=== PATIENT | female | born 1940 | race Caucasian/White ===

== ENCOUNTER 2020-01-10 13:20 | Inpatient (IN) | payer MEDICARE ==
[2020-01-10] MEDS ORDERED: HYDROcodone/Acetaminophen 5/325 mg Tablet PO PRN (14:45)
[2020-01-10] MEDS ORDERED: tiZANidine HCl 4 MG TAB PO PRN (14:48)
[2020-01-10] MEDS ORDERED: Gabapentin 300 MG CAP PO SCH (15:00)
[2020-01-10] MEDS ORDERED: IVABRADINE 5 MG PO SCH (21:00)
[2020-01-10] MEDS ORDERED: Pravastatin Sodium 20 MG TAB PO SCH (21:00)
[2020-01-10] MEDS ORDERED: Midodrine HCl 5 MG TAB PO SCH (21:00)
[2020-01-10] MEDS ORDERED: Metoprolol Tartrate 25 MG TAB PO SCH (21:00)
[2020-01-10] MEDS: Gabapentin 300 MG CAP PO SCH (23:15)
[2020-01-10] MEDS: Metoprolol Tartrate 25 MG TAB PO SCH (23:16)
[2020-01-10] MEDS: Simvastatin 10 MG TAB PO SCH (23:17)
[2020-01-10] MEDS: Midodrine HCl 5 MG TAB PO SCH (23:18)
[2020-01-10] MEDS: CORLANOR 5 MG PO SCH (23:22)
--- NOTE | 2020-01-11 01:06 | HP ---
HISTORY OF PRESENT ILLNESS: Ms. Beckman is a well-developed, well-nourished, slightly obese 79-year-old white female, who was standing at home when she somehow fell. She had a resultant laceration to the scalp and a left femoral neck fracture. She was taken to the surgical suite and had open reduction and internal fixation done. Postoperatively, she had some atrial arrhythmias, hypotension, and was moved to telemetry. Eventually, she was stabilized back in sinus rhythm. Dr. Pearson is her inoculator and adjusted her medications and placed her on midodrine also to keep her blood pressure up. PAST MEDICAL HISTORY: Significant for hypertension, hyperlipidemia, peripheral neuropathy, coronary artery disease, congestive heart failure, sinus tachycardia, chronic pain, scalp laceration, open reduction and internal fixation of the left femoral neck, pain, generalized weakness. PAST SURGICAL HISTORY: Cardiac stent, hysterectomy, left total shoulder, carotid endarterectomy, bladder surgery. FAMILY HISTORY: Noncontributory. SOCIAL HISTORY: Reveals the patient smokes 1-1/2 packs a day for the past 60 years, which is a [id number] history of smoking. The patient's alcohol intake is rare, the patient does no drugs. REVIEW OF SYSTEMS: Reveals the patient has a poor appetite and states she has been losing weight and is very tired. She denies fever, chills, or night sweats. She does admit to pain. Denies any skin rashes except for the area over her left methodist, where she has small scalp laceration, and they had two sutures, which were stapled, that have already been removed. The patient denies decrease hearing or vision. The patient does state that she has some shortness of breath and coughing most likely from her smoking. The patient denies any chest pain, dyspnea on exertion, or palpitations at this time. The patient denies nausea, vomiting, indigestion, diarrhea, constipation, or bloody stools. The patient complains of left hip pain and states she actually has not walked in about 2-1/2 years. She does state that she has chronic pain all the time. The patient does have history of anxiety, depressive disorder, is on duloxetine for that and for chronic pain. PHYSICAL EXAMINATION: GENERAL: This is a well-developed, well-nourished, slightly obese white female, in no apparent distress at this time. HEENT: Normocephalic and nontraumatic cranium except for a small laceration in left parietal area, where the skin paul were to approximate that. They are now removed. Nose and throat are somewhat dry. NECK: Supple without masses, nodes, or bruits. CHEST: Clear to auscultation. No rales, no rhonchi, no wheezes are heard. HEART: Reveals a regular rate and rhythm at this time. No murmurs, gallops, or rubs are noted. ABDOMEN: Slightly obese. Soft, nontender without organomegaly. Normal bowel sounds are noted. No rebound or guarding is noted. : Deferred. EXTREMITIES: Reveal no clubbing, cyanosis, or edema. Left hip reveals bandage over the left femoral neck area does not have much drainage or staining. MUSCULOSKELETAL: The patient states she has generalized weakness, but has not walked in 2-1/2 years. She states she was sent here for transferring and standing. NEUROLOGIC: Cranial nerves II through XII are intact. The patient has generalized weakness and pain. The patient is oriented to person, place, and time. ASSESSMENT: 1. Hypertension. 2. Hypotension, most recently with the patient having to be started on midodrine 2.5 mg t.i.d. 3. Hyperlipidemia. 4. Peripheral neuropathy. 5. Sinus tachycardia. 6. Congestive heart failure. 7. Coronary artery disease. 8. Scalp laceration, healing. 9. Left femoral neck fracture, status post ORIF. MEDICATIONS: The patient is on the followin. Xanax 0.5 mg b.i.d. p.r.n. 2. Lovenox 40 mg subcu each day. 3. Metoprolol tartrate 12.5 mg b.i.d. 4. Ramipril 5 mg at bedtime. 5. Pravastatin 10 mg at bedtime. 6. Ivabradine 5 mg b.i.d. 7. Midodrine 2.5 mg t.i.d. 8. Raloxifene 60 mg daily. 9. Tizanidine 4 mg three times a day. 10. Duloxetine 40 mg daily. 11. Gabapentin 300 mg daily. 12. Ferrous sulfate 325 mg daily. 13. Iron with multivitamin each day. 14. Nicotine patch. The patient states she is not going to wear, because her family will take her outside to smoke. PLAN: 1. Continue to monitor the patient's blood pressure closely and adjust medications as needed. 2. Continue to monitor the patient for signs and symptoms of congestive heart failure. 3. Continue to monitor the patient's heart rate for AFib and RVR. 4. Stress ulcer prophylaxis. 5. Decubitus precautions. 6. DVT prophylaxis per Primary Service. 7. Encourage the patient to stop smoking, but her family has chosen to take responsibility to take her outside to smoke if she needed. 8. The patient has been offered a nicotine 21 mg patch like she had at the other hospital, but she refuses it at this time. 9. Physical therapy and occupational therapy. 10. Pain management. Job ID: [id number]
[2020-01-11] MEDS ORDERED: Enoxaparin Sodium 40 MG/0.4 ML SYRINGE SC SCH (05:00)
[2020-01-11] MEDS: HYDROcodone/Acetaminophen 5/325 mg Tablet PO PRN ×3 (05:52→20:51)
[2020-01-11] MEDS ORDERED: Aspirin 81 mg Enteric Coated Tablet PO SCH (09:00)
[2020-01-11] MEDS: Gabapentin 300 MG CAP PO SCH ×3 (09:31→20:50)
[2020-01-11] MEDS: Enoxaparin Sodium 40 MG/0.4 ML SYRINGE SC SCH (09:31)
[2020-01-11] MEDS: Midodrine HCl 5 MG TAB PO SCH ×3 (09:31→20:53)
[2020-01-11] MEDS: Metoprolol Tartrate 25 MG TAB PO SCH ×2 (09:32→20:52)
[2020-01-11] MEDS: CORLANOR 5 MG PO SCH ×2 (09:33→20:54)
[2020-01-11] MEDS: RALOXIFENE 60 MG PO SCH (09:34)
[2020-01-11] MEDS: Aspirin 81 mg Enteric Coated Tablet PO SCH (09:36)
--- NOTE | 2020-01-11 10:30 | PRG ---
DATE OF SERVICE: 01/11/2020 SUBJECTIVE: Ms. Beckman is a very pleasant 79-year-old white female, who was standing at home when she fell. She had a resultant laceration to the scalp and a left femoral neck fracture. She was taken to surgical suite and had open reduction and internal fixation done. Postoperatively, she developed some atrial arrhythmias. The patient was seen by her angle furnaceman and medications were adjusted. This morning, the patient states she is doing well. She states she is ready to go home. I did tell her that she got transferred here for physical therapy to get her strength better. She states she has not walked in 2-1/2 years. She just needs to get stronger, so she can transfer back and forth to her wheelchair and to stand. We will work on that. OBJECTIVE: VITAL SIGNS: Today reveal blood pressure 119/57, pulse 88, respirations 20, O2 saturation 95% on room air, T-max 97.9. GENERAL: This is a well-developed, somewhat obese white female, in no apparent distress at this time. HEENT: Reveals normocephalic and nontraumatic cranium. Pupils equal, round, and reactive. Extraocular movements are intact. Nose and throat are slightly dry, but clear. NECK: Supple without masses, nodes, or bruits. CHEST: Clear to auscultation. No rales, no rhonchi, no wheezes are heard. HEART: Reveals a regular rate and rhythm at this time. No murmurs, gallops, or rubs are noted. ABDOMEN: Obese, soft, nontender without organomegaly. Normal bowel sounds are noted in all 4 quadrants. No rebound or guarding is noted. : Deferred. EXTREMITIES: Reveal no clubbing or cyanosis with trace edema. Left hip bandage still reveals no significant draining or staining. MUSCULOSKELETAL: The patient has generalized weakness. The patient has not been seen by therapy yet, but we will start her with transferring and strengthening exercises. NEUROLOGIC: The patient is oriented to person, place, and time at this time. ASSESSMENT: 1. Hypertension. 2. Hypotension. Most recently, the patient was started on midodrine 2.5 mg t.i.d. 3. Hyperlipidemia. 4. Peripheral neuropathy. 5. Sinus tachycardia. 6. Congestive heart failure. 7. Coronary artery disease. 8. Scalp laceration, healing. 9. Left femoral neck fracture, status post open reduction and internal fixation. 10. Generalized weakness. PLAN: 1. Continue to monitor the patient's blood pressure closely. Adjust medications as needed. 2. Monitor the patient for signs and symptoms of congestive heart failure. 3. Continue to monitor the patient's heart rate for atrial fibrillation and RVR. 4. Stress ulcer prophylaxis. 5. Decubitus precautions. 6. DVT prophylaxis. 7. Encourage the patient to stop smoking. 8. The patient's family has chosen to take the patient outside on their own to smoke if she needs to be. They were taking responsibility to make sure she does not fall. 9. The patient has been offered nicotine 21 mg patches, but she refuses those. 10. Continue physical therapy and occupational therapy. 11. Pain management. Job ID: [id number]
[2020-01-11 11:29] LABS: ALT (SGPT) 12 U/L (8-55); AST (SGOT) 18 U/L (5-34); Albumin 3.1 g/dL (3.4-4.8); Alkaline Phosphatase 64 U/L (40-110); Anion Gap 14 mmol/L (10-20); BUN (Urea Nitrogen) 12 mg/dL (9.8-20.1); Bilirubin, Total 0.4 mg/dL (0.2-1.2); Calc. Creatinine Clearance 84 mL/min (70-130); Calcium 8.9 mg/dL (7.8-10.44); Carbon Dioxide 22 mmol/L (23-31); Chloride 104 mmol/L (98-107); Estimated GFR-MDRD 78; Globulin 3.1 g/dL (2.4-3.5); Glucose 123 mg/dL (83-110); Potassium 4.1 mmol/L (3.5-5.1); Protein, Total 6.2 g/dL (6.0-8.3); Sodium 136 mmol/L (136-145)
[2020-01-11] MEDS: tiZANidine HCl 4 MG TAB PO PRN ×2 (12:03→20:52)
[2020-01-11 12:55] LABS: #Basophils 0.1 thou/uL (0.0-0.2); #Eosinphils 0.3 thou/uL (0.0-0.7); #Lymphocytes 1.8 thou/uL (1.20-3.40); #Monocytes 0.4 thou/uL (0.11-0.59); #Neutrophils 4.2 thou/uL (1.40-6.50); %Basophils 1.1 % (0.0-1.0); %Eosinophils 3.8 % (0.0-10.0); Hemoglobin 9.5 g/dL (12.0-16.0); Mean Corpuscular HGB CONC 32.3 g/dL (32.0-36.0); Mean Corpuscular Hemoglobin 31.4 pg (27.0-31.0); Mean Corpuscular Volume 97.4 fL (78.0-98.0); Mean Platelet Volume 6.3 fL (7.4-10.4); Platelet Count 293 thou/uL (130-400); RBC Distribution Width 13.2 % (11.5-14.5); Red Blood Cell (RBC) Count 3.01 mill/uL (4.20-5.40); White Blood Cell (WBC) Count 6.7 thou/uL (4.8-10.8)
[2020-01-11 20:02] LABS: Bilirubin Negative (Negative); Blood, Urine Negative (Negative); Clarity Clear (Clear); Glucose, Urine (Dipstick) Negative (Negative); Ketone, Urine Negative (Negative); Leukocyte Negative (Negative); Nitrite Negative (Negative); Protein, Urine (Dipstick) Negative (Neg-Trace)
[2020-01-11 20:11] LABS: Bacteria/HPF None Seen HPF (None Seen); RBC/HPF None Seen HPF (0-3); Squamous Epithelial 0-3 HPF (0-3); WBC/HPF None Seen HPF (0-3)
[2020-01-11] MEDS: Simvastatin 10 MG TAB PO SCH (20:50)
[2020-01-12] MEDS: HYDROcodone/Acetaminophen 5/325 mg Tablet PO PRN ×3 (08:25→21:18)
[2020-01-12] MEDS: Midodrine HCl 5 MG TAB PO SCH ×3 (08:27→21:20)
[2020-01-12] MEDS: Enoxaparin Sodium 40 MG/0.4 ML SYRINGE SC SCH (08:27)
[2020-01-12] MEDS: Gabapentin 300 MG CAP PO SCH ×3 (08:27→21:19)
[2020-01-12] MEDS: Metoprolol Tartrate 25 MG TAB PO SCH ×2 (08:29→21:19)
[2020-01-12] MEDS: Aspirin 81 mg Enteric Coated Tablet PO SCH (08:29)
[2020-01-12] MEDS: RALOXIFENE 60 MG PO SCH (08:30)
[2020-01-12] MEDS: CORLANOR 5 MG PO SCH (08:30)
[2020-01-12] MEDS: Ivabradine 5 MG TAB PO SCH (21:19)
[2020-01-12] MEDS: tiZANidine HCl 4 MG TAB PO PRN (21:20)
[2020-01-12] MEDS: Simvastatin 10 MG TAB PO SCH (21:20)
--- NOTE | 2020-01-13 06:15 | PRG ---
DATE OF SERVICE: 01/12/2020 SUBJECTIVE: Ms. Beckman is a 79-year-old, slightly obese white female, who fell at home. She had a resultant laceration of her skull and a resultant left femoral neck fracture. She was taken to surgical suite and had open reduction and internal fixation done. Postoperatively, she developed some atrial arrhythmias. She was seen by Cardiology and medications were adjusted. This morning, the patient states she is doing well and she is ready to go home. I did check with therapy. They state she is not doing as well as she should be. She states she has not walked in 2-1/2 years and also wants to stay in her wheelchair. Physical Therapy states she is not safe transferring to wheelchair yet and she needs more therapy. The patient's son is in agreement that she is not ready to go home. OBJECTIVE: VITAL SIGNS: Today reveal blood pressure 118/58, pulse 82 to 98, respirations 18 to 20, O2 saturation 95% to 98% on room air, and T-max 98.1. PHYSICAL EXAMINATION: GENERAL: This is a well-developed, well-nourished, slightly obese white female, in no apparent distress at this time. HEENT: Reveal normocephalic and nontraumatic cranium. Pupils are equally round and reactive. Extraocular movements are intact. Nose and throat are slightly dry. NECK: Supple without masses, nodes, or bruits. CHEST: Clear to auscultation. No rales, rhonchi, wheezes, or cough are heard. HEART: Reveals a regular rate and rhythm without murmurs, gallops, or rubs. ABDOMEN: Obese, soft, nontender without organomegaly. Normal bowel sounds are noted in all 4 quadrants. No rebound or guarding is noted. : Deferred. EXTREMITIES: Reveal no clubbing or cyanosis, with trace edema. Left hip bandage is still on. No significant drainage or staining is noted. Musculoskeletal mcknight, patient has generalized weakness. Patient has not been seen by Therapy, will start her on transferring and strengthening exercises. NEUROLOGIC: Patient is oriented to person, place, and time at this time. ASSESSMENT: 1. Hypertension. 2. Recent hypotension. The patient had to be started on midodrine 2.5 mg t.i.d. 3. Hyperlipidemia. 4. Peripheral neuropathy. 5. Sinus tachycardia. 6. Congestive heart failure. 7. Coronary artery disease. 8. Scalp laceration, healing. 9. Left femoral neck fracture, status post open reduction and internal fixation. 10. Generalized weakness. PLAN: 1. Continue to monitor the patient's blood pressure closely and adjust medications as needed. 2. Continue to monitor the patient for signs and symptoms of CHF. 3. Continue to monitor the patient's heart rate for AFib and RVR. 4. Stress ulcer prophylaxis. 5. Decubitus precautions. 6. DVT prophylaxis. 7. Encourage the patient to stop smoking. 8. Patient's family has signed a waiver that they will take the patient outside and will be responsible for her safety when she needs to smoke. 9. Patient has been offered nicotine 21 mg patches, but again she refuses those. 10. Continue PT and OT. 11. Pain management. Job ID: [id number]
[2020-01-13] MEDS: Midodrine HCl 5 MG TAB PO SCH ×3 (08:47→21:57)
[2020-01-13] MEDS: Aspirin 81 mg Enteric Coated Tablet PO SCH (08:47)
[2020-01-13] MEDS: Ivabradine 5 MG TAB PO SCH ×2 (08:47→21:58)
[2020-01-13] MEDS: Gabapentin 300 MG CAP PO SCH ×3 (08:47→21:57)
[2020-01-13] MEDS: Metoprolol Tartrate 25 MG TAB PO SCH ×2 (08:48→21:58)
[2020-01-13] MEDS: Enoxaparin Sodium 40 MG/0.4 ML SYRINGE SC SCH (08:48)
[2020-01-13] MEDS: Polyethylene Glycol 3350 17 GM Packet PO SCH (08:49)
[2020-01-13] MEDS: HYDROcodone/Acetaminophen 5/325 mg Tablet PO PRN ×3 (09:12→17:29)
--- NOTE | 2020-01-13 19:55 | PRG ---
DATE OF SERVICE: 01/13/2020 SUBJECTIVE: Ms. Beckman is a 79-year-old, slightly obese white female. She fell at home and had a resultant laceration of her skull, but also resultant left femoral neck fracture. She was taken to the surgical suite and had open reduction and internal fixation done. Postoperatively, unfortunately, she developed some atrial arrhythmias. She was seen by Cardiology. Her medications were adjusted. The patient eventually was stabilized and transferred to inpatient rehab for physical therapy and occupational therapy. When I saw the patient this morning, her son was with her. He is getting ready to bring her outside to smoke. I did caution her that smoking would decrease her healing. She states she only wants to get little stronger, so she can go home. She states she has not really walked in 2-1/2 years and she mainly uses her wheelchair. I did reiterate that we would have to help her get stronger, so she can transfer in and out of bed independently. OBJECTIVE: VITAL SIGNS: Today reveal blood pressure 112/54, pulse 85, respirations 20, O2 saturations 98% on room air, T-max 97.4. GENERAL: This is a well-developed, well-nourished, pleasant, slightly obese white female, who is moving outside in a wheelchair to go smoke. Her family will come by several times each day and take her out to smoke. She did not speak when she was in the hospital and they had a Nicoderm patch on her and she refused it here. HEENT: Reveals normocephalic and nontraumatic cranium. Pupils are equally round and reactive. Extraocular movements are intact. Nose and throat are dry. NECK: Supple without masses, nodes, or bruits. CHEST: Clear to auscultation without rales, rhonchi, or wheezes. The patient does cough. HEART: Reveals a regular rate and rhythm without murmurs, gallops, or rubs. ABDOMEN: Obese, soft, nontender. Normal bowel sounds are noted in all 4 quadrants. No rebound or guarding is noted. : Deferred. EXTREMITIES: Reveal no clubbing or cyanosis, but trace edema. Left hip bandage is intact. No redness or drainage is noted. MUSCULOSKELETAL: The patient has generalized weakness and does not walk for 2- 1/2 years. Physical therapy is working with her to get her able to be independent of transferring a wheelchair to the bed. She is resistant because she really wants to go home. NEUROLOGIC: The patient is oriented to person, place, and time. ASSESSMENT: 1. Hypertension. 2. Tobacco abuse. 3. Recent hypotension. The patient has been on midodrine. We will continue to follow her labs. 4. Hyperlipidemia. 5. Peripheral neuropathy. 6. Sinus tachycardia. 7. Congestive heart failure. 8. Coronary artery disease. 9. Scalp laceration, which is healed. 10. Left femoral neck fracture, status post open reduction and internal fixation. 11. Generalized weakness. PLAN: 1. Continue to encourage the patient to stop smoking. 2. Continue monitor the patient's blood pressure closely and adjust medications as needed. 3. Continue to monitor the patient for signs and symptoms of CHF. 4. Continue to monitor the patient's heart rate for atrial fibrillation and RVR. 5. Stress ulcer prophylaxis. 6. Decubitus precautions. 7. DVT prophylaxis. 8. Encourage the patient to stop smoking. 9. Family signed a waiver that they will take the patient outside, so she can smoke. 10. The patient refuses nicotine 21 mg patches. 11. Continue PT and OT. 12. Pain management. Job ID: [id number] MTDD
[2020-01-13] MEDS: Simvastatin 10 MG TAB PO SCH (21:59)
[2020-01-14] MEDS: Polyethylene Glycol 3350 17 GM Packet PO SCH (09:29)
[2020-01-14] MEDS: Enoxaparin Sodium 40 MG/0.4 ML SYRINGE SC SCH (09:29)
[2020-01-14] MEDS: Metoprolol Tartrate 25 MG TAB PO SCH ×2 (09:30→21:09)
[2020-01-14] MEDS: Gabapentin 300 MG CAP PO SCH ×3 (09:30→21:07)
[2020-01-14] MEDS: Ivabradine 5 MG TAB PO SCH ×2 (09:30→21:07)
[2020-01-14] MEDS: Aspirin 81 mg Enteric Coated Tablet PO SCH (09:30)
[2020-01-14] MEDS: Midodrine HCl 5 MG TAB PO SCH ×3 (09:30→21:07)
[2020-01-14] MEDS: tiZANidine HCl 4 MG TAB PO PRN ×2 (09:39→21:07)
[2020-01-14] MEDS: HYDROcodone/Acetaminophen 5/325 mg Tablet PO PRN ×2 (09:39→21:08)
--- NOTE | 2020-01-14 14:54 | PRG ---
DATE OF SERVICE: 01/14/2020 SUBJECTIVE: Ms. Beckman is a well-developed, well-nourished 79-year-old white female who fell at home. She had a resultant left femoral neck fracture and a skull laceration. She was taken to surgical suite, had open reduction and internal fixation done. She had paul done to her scalp. She eventually was stabilized and then transferred to [facility] for physical therapy and occupational therapy. The patient states she is working hard with therapy, but still pretty weak. Therapy states she still very unsafe when she transfers. She did have a son, Jerad, come and demonstrate his skills at transferring her, but he has back problems and it is not really safe. She does qualify for staying longer so that she can get stronger and help become less dependent on others to transfer her. OBJECTIVE: VITAL SIGNS: Today reveal blood pressure 141/79 this morning, pulse 71, respirations 20, O2 saturation 94% to 96% on room air, and T-max 97.9. GENERAL: This is a well-developed, well-nourished, slightly obese white female, in no apparent distress at this time. HEENT: Reveals normocephalic and nontraumatic cranium. Pupils equally round and reactive. Extraocular movements are intact. Nose and throat are dry, but clear. NECK: Supple without masses, nodes, or bruits. CHEST: Clear to auscultation. No rales, rhonchi, wheezes are heard. HEART: Reveals a regular rate and rhythm. No murmurs, gallops, or rubs. ABDOMEN: Obese, soft, nontender without organomegaly. Normal bowel sounds are noted. No rebound or guarding was noted. : Deferred. EXTREMITIES: Reveal no clubbing or cyanosis, but trace edema. Left hip bandage is clear. MUSCULOSKELETAL: The patient has generalized weakness. She states she is not walking 2-1/2 years. Physical Therapy states she still unsafe to transfer herself and she is not independent. NEUROLOGIC: She is oriented to person, place, and time. ASSESSMENT: 1. Hypertension. 2. Tobacco abuse. 3. Recent hypotension. The patient has been on midodrine. We will continue to follow her blood pressure closely and adjust as needed. 4. Hyperlipidemia. 5. Peripheral neuropathy. 6. Sinus tach. 7. Congestive heart failure. 8. Coronary artery disease. 9. Scalp laceration, which was healed. 10. Left femoral neck fracture, status post open reduction and internal fixation. 11. Generalized weakness. PLAN: 1. Continue to encourage the patient to stop smoking, although the family still takes her outside to smoke. 2. Continue to monitor the patient's blood pressure closely and adjust medicines as needed. 3. Monitor the patient for signs and symptoms of CHF. 4. Monitor the patient's heart rate for atrial fibrillation and RVR. 5. Stress ulcer prophylaxis. 6. Decubitus precautions. 7. DVT prophylaxis. 8. Continue PT and OT. 9. Pain management. Job ID: [id number]
[2020-01-14] MEDS: Simvastatin 10 MG TAB PO SCH (21:09)
[2020-01-15] MEDS: Enoxaparin Sodium 40 MG/0.4 ML SYRINGE SC SCH (09:31)
[2020-01-15] MEDS: Ivabradine 5 MG TAB PO SCH ×2 (09:32→20:50)
[2020-01-15] MEDS: Gabapentin 300 MG CAP PO SCH ×3 (09:32→20:50)
[2020-01-15] MEDS: Metoprolol Tartrate 25 MG TAB PO SCH ×2 (09:32→20:51)
[2020-01-15] MEDS: Midodrine HCl 5 MG TAB PO SCH ×3 (09:32→20:51)
[2020-01-15] MEDS: Aspirin 81 mg Enteric Coated Tablet PO SCH (09:32)
[2020-01-15] MEDS: Polyethylene Glycol 3350 17 GM Packet PO SCH (09:32)
[2020-01-15] MEDS: HYDROcodone/Acetaminophen 5/325 mg Tablet PO PRN ×3 (09:38→20:52)
[2020-01-15] MEDS: tiZANidine HCl 4 MG TAB PO PRN ×2 (09:38→20:51)
[2020-01-15] MEDS: Simvastatin 10 MG TAB PO SCH (20:50)
[2020-01-16] MEDS: Polyethylene Glycol 3350 17 GM Packet PO SCH (08:37)
[2020-01-16] MEDS: Ivabradine 5 MG TAB PO SCH ×2 (08:37→21:46)
[2020-01-16] MEDS: Aspirin 81 mg Enteric Coated Tablet PO SCH (08:37)
[2020-01-16] MEDS: Metoprolol Tartrate 25 MG TAB PO SCH ×2 (08:37→21:47)
[2020-01-16] MEDS: Enoxaparin Sodium 40 MG/0.4 ML SYRINGE SC SCH (08:37)
[2020-01-16] MEDS: tiZANidine HCl 4 MG TAB PO PRN ×2 (08:37→21:47)
[2020-01-16] MEDS: Midodrine HCl 5 MG TAB PO SCH ×3 (08:37→21:48)
[2020-01-16] MEDS: Gabapentin 300 MG CAP PO SCH ×3 (08:37→21:46)
[2020-01-16] MEDS: Simvastatin 10 MG TAB PO SCH (21:47)
[2020-01-17] MEDS: HYDROcodone/Acetaminophen 5/325 mg Tablet PO PRN ×2 (04:37→14:10)
[2020-01-17] MEDS: Enoxaparin Sodium 40 MG/0.4 ML SYRINGE SC SCH (08:39)
[2020-01-17] MEDS: Polyethylene Glycol 3350 17 GM Packet PO SCH (08:39)
[2020-01-17] MEDS: Ivabradine 5 MG TAB PO SCH ×2 (08:40→20:37)
[2020-01-17] MEDS: Midodrine HCl 5 MG TAB PO SCH (08:40)
[2020-01-17] MEDS: Aspirin 81 mg Enteric Coated Tablet PO SCH (08:40)
[2020-01-17] MEDS: Gabapentin 300 MG CAP PO SCH ×3 (08:40→20:37)
[2020-01-17] MEDS: Metoprolol Tartrate 25 MG TAB PO SCH ×2 (08:41→20:36)
--- NOTE | 2020-01-17 10:11 | PRG ---
DATE OF SERVICE: 01/17/2020 SUBJECTIVE: Ms. Beckman is a 79-year-old white female, who fell at home. She had a resultant femoral neck fracture and head laceration. She had open reduction and internal fixation done on her femoral neck fracture and had paul to her scalp. She eventually stabilized and transferred to [facility] for PT and OT. The patient refused therapy on Friday and today she states she is stronger if she wants to go home. Her son, Jerad, has back problems, is unable to transfer her well, and she is a max assist. Her grandson is big and can transfer her, but she certainly can get a lot stronger before she leaves here. I did tell her that she needs to stay a little longer to get stronger and she needs to work a little harder on her therapy and her transferring. OBJECTIVE: VITAL SIGNS: Today reveal blood pressure 131/63, pulse 72 to 82, respirations 18 to 20, O2 saturation 95% on room air, T-max 99.1 yesterday evening. GENERAL: This is a well-developed, well-nourished, somewhat obese white female, in no apparent distress at this time. HEENT: Reveals normocephalic and nontraumatic cranium. Pupils are equally round and reactive. Extraocular movements are intact. Nose and throat are clear. Scalp lacerations healed. NECK: Supple without masses, nodes, or bruits. CHEST: Clear to auscultation. No rales, rhonchi, or wheezes are heard. HEART: Reveals a regular rate and rhythm. No murmurs, gallops, or rubs are noted. ABDOMEN: Obese, soft, and nontender. Normal bowel sounds noted in all 4 quadrants. No rebound or guarding is noted. : Deferred. EXTREMITIES: Reveal left hip has hip bandage over still and seems to be no drainage. MUSCULOSKELETAL: The patient has generalized weakness. She states she has not walked in 2-1/2 years and she just gets in a wheelchair and moves around. Physical therapy still feels that she is most likely unsafe to transfer herself since she is not independent and she is a max assist. NEUROLOGIC: She is oriented to person, place, and time. ASSESSMENT: 1. Hypertension. 2. Recent hypotension. Continue to follow blood pressure closely. 3. Hyperlipidemia. 4. Peripheral neuropathy. 5. Sinus tach. 6. Congestive heart failure. 7. Coronary artery disease. 8. Scalp laceration, healed. 9. Left femoral neck fracture, status post open reduction and internal fixation. 10. Generalized weakness. PLAN: 1. Continue to encourage the patient to work harder in therapy to get stronger. 2. Continue to monitor the patient's blood pressure closely and adjust medications as needed. 3. Monitor the patient for signs and symptoms of CHF. 4. Monitor the patient's heart rate for atrial fibrillation and RVR. 5. Stress ulcer prophylaxis. 6. Decubitus precautions. 7. DVT prophylaxis. 8. Continue PT and OT. 9. Pain management. Job ID: [id number]
[2020-01-17] MEDS: Simvastatin 10 MG TAB PO SCH (20:36)
[2020-01-18] MEDS: Enoxaparin Sodium 40 MG/0.4 ML SYRINGE SC SCH (07:55)
[2020-01-18] MEDS: Polyethylene Glycol 3350 17 GM Packet PO SCH (07:55)
[2020-01-18] MEDS: Gabapentin 300 MG CAP PO SCH ×3 (07:55→20:29)
[2020-01-18] MEDS: Metoprolol Tartrate 25 MG TAB PO SCH ×2 (07:56→20:30)
[2020-01-18] MEDS: Aspirin 81 mg Enteric Coated Tablet PO SCH (07:56)
[2020-01-18] MEDS: Ivabradine 5 MG TAB PO SCH ×2 (07:57→20:32)
[2020-01-18] MEDS: HYDROcodone/Acetaminophen 5/325 mg Tablet PO PRN ×2 (07:57→14:47)
--- NOTE | 2020-01-18 09:35 | PRG ---
DATE OF SERVICE: 01/18/2020 SUBJECTIVE: Ms. Beckman is a 79-year-old white female, who fell at home. She had a resultant femoral neck fracture and head laceration. She had open reduction and internal fixation done on femoral neck fracture and has paul to her scalp. She eventually was stabilized and transferred to [facility] for PT and OT. The patient was doing better with therapy yesterday. We are trying to help transfer herself better because her son, Jerad, has back problems and unable to transfer her very well. She has been max assist, but she was a standby assist yesterday. We are hoping to get her home. The patient states that last time she used [facility] and she would like to use them again. They have been contacted and we were trying to get her stabilized, so she can go home within the next few days. OBJECTIVE: VITAL SIGNS: Reveal blood pressure this morning was 158/71, pulse 74 to 88, respirations 20, O2 saturation 95% to 96% on room air, T-max 98.6. GENERAL: This is a well-developed, obese white female, in no apparent distress at this time. HEENT: Reveals normocephalic and nontraumatic cranium. Pupils are equally round and reactive. Extraocular movements are intact. Nose and throat are slightly dry, but clear. Scalp laceration heals. NECK: Supple without masses, nodes, or bruits. CHEST: Clear to auscultation. No rales, rhonchi, wheezes, or cough is heard. HEART: Reveals a regular rate and rhythm without murmurs, gallops, or rubs. ABDOMEN: Obese, soft, and nontender. Normal bowel sounds noted in all 4 quadrants. No rebound or guarding is noted. : Deferred. EXTREMITIES: Reveal hip bandage is dry and healing well. MUSCULOSKELETAL: The patient has generalized weakness. She states she has not walked in 2-1/2 years and just at home gets in a wheelchair and moves around. Physical therapy was able to get her to do better with assisting in her transfers yesterday. NEUROLOGIC: She is oriented to person, place, and time. ASSESSMENT: 1. Hypertension. 2. Recent hypotension and the patient was on midodrine which we discontinued yesterday. 3. Hyperlipidemia. 4. Peripheral neuropathy. 5. Sinus tach. 6. Congestive heart failure. 7. Coronary artery disease. 8. Scalp laceration, healed. 9. Left femoral neck fracture, status post open reduction and internal fixation. 10. Generalized weakness. PLAN: 1. Continue to encourage the patient to be more helpful with transfers, so she can get stronger. 2. Continue to monitor the patient's blood pressure closely, adjust medications as needed. 3. We did stop the patient's midodrine yesterday. 4. Continue to monitor the patient for signs and symptoms of CHF. 5. Monitor the patient's heart rate for atrial fibrillation and RVR. 6. Stress ulcer prophylaxis. 7. Decubitus precautions. 8. DVT prophylaxis. 9. Continue PT and OT. 10. Pain management. Job ID: [id number]
[2020-01-18 12:20] VITALS: BMI 28.9
[2020-01-18] MEDS: Simvastatin 10 MG TAB PO SCH (20:31)
[2020-01-19] MEDS: HYDROcodone/Acetaminophen 5/325 mg Tablet PO PRN ×2 (09:04→14:32)
[2020-01-19] MEDS: Enoxaparin Sodium 40 MG/0.4 ML SYRINGE SC SCH (09:05)
[2020-01-19] MEDS: Metoprolol Tartrate 25 MG TAB PO SCH ×2 (09:06→21:35)
[2020-01-19] MEDS: Ivabradine 5 MG TAB PO SCH ×2 (09:06→21:35)
[2020-01-19] MEDS: Aspirin 81 mg Enteric Coated Tablet PO SCH (09:06)
[2020-01-19] MEDS: Gabapentin 300 MG CAP PO SCH ×3 (09:09→21:34)
[2020-01-19] MEDS: Polyethylene Glycol 3350 17 GM Packet PO SCH (09:11)
--- NOTE | 2020-01-19 11:21 | PRG ---
DATE OF SERVICE: 01/19/2020 SUBJECTIVE: Ms. Beckman is a pleasant 79-year-old white female, who fell at home. She had a resultant femoral neck fracture and had lacerations. She was taken to surgical suite for ORIF of the femoral neck fracture. She had paul to her scalp, which have since been removed. She eventually stabilized and transferred to [facility] for PT and OT. The patient states she is doing well and wants to go home today. I did convince her to go home, wait at least until tomorrow until we get all of her therapy set up. I did have a call in to Cecy Narayanan to make sure that her home health either with [facility] or [facility] is set up. The patient states she does not walk at home. She has not walked in 2-1/2 years. She has a wheelchair that gets around. She has four boys, of which two of them live nearby and help her get up and down. She states she is not going to get any better. She is not going to try to walk, and actually, she does not try real hard in therapy. She does participate, but does not typically use her upper extremities, which are actually very good. The patient states she is going home tomorrow whether we like it or not. OBJECTIVE: VITAL SIGNS: This morning reveal blood pressure 116/66. The patient is off midodrine. Pulse 80 to 93, respirations 18 to 20, O2 saturation 95% to 96% on room air, and T-max 98.0. GENERAL: On physical exam, this is a well-developed, well-nourished, obese white female, in no apparent distress at this time. HEENT: Reveals normocephalic and nontraumatic cranium. Pupils are equally round and reactive. Extraocular movements are intact. Nose and throat are dry. NECK: Supple without masses, nodes, or bruits. CHEST: Clear to auscultation. No rales, rhonchi, wheezes, or cough is heard. HEART: Reveals a regular rate and rhythm without murmurs, gallops, or rubs. ABDOMEN: Obese, soft, and nontender. Bowel sounds are normal in all 4 quadrants. No rebound or guarding is noted. : Deferred. EXTREMITIES: Reveal no clubbing, cyanosis, or edema. Just generalized weakness. MUSCULOSKELETAL: The patient states she has not walked in 2-1/2 years and she is not going to walk. When she goes home, she is going to stay in a wheelchair and just transfer. Physical Therapy is getting her to do a better job transferring with help. NEUROLOGIC: She is oriented to person, place, and time. ASSESSMENT: 1. Hypertension. 2. Recent hypotension. The patient was on midodrine, which has been discontinued, and she is stable. 3. Hyperlipidemia. 4. Peripheral neuropathy. 5. Sinus tachycardia. 6. Congestive heart failure. 7. CAD. 8. Scalp laceration, which has healed. 9. Left femoral neck fracture, status post open reduction and internal fixation. 10. Generalized weakness. PLAN: 1. Continue to monitor the patient's blood pressure closely and adjust medications as needed. 2. The patient's midodrine is stopped two days ago. 3. Monitor the patient for signs and symptoms of CHF. 4. Continue to monitor the patient's heart rate for atrial fibrillation and RVR. 5. Stress ulcer prophylaxis. 6. Decubitus precautions. 7. DVT prophylaxis. 8. Continue physical therapy and occupational therapy. 9. Continue to encourage the patient to work hard with therapy to improve her transfers. 10. Pain management. Job ID: [id number]
[2020-01-19] MEDS: Simvastatin 10 MG TAB PO SCH (21:34)
[2020-01-19] MEDS: tiZANidine HCl 4 MG TAB PO PRN (21:36)
[2020-01-20 05:38] LABS: #Basophils 0.1 thou/uL (0.0-0.2); #Eosinphils 0.3 thou/uL (0.0-0.7); #Lymphocytes 2.1 thou/uL (1.20-3.40); #Monocytes 0.4 thou/uL (0.11-0.59); #Neutrophils 2.5 thou/uL (1.40-6.50); %Basophils 1.3 % (0.0-1.0); %Eosinophils 5.2 % (0.0-10.0); %Lymphocytes 39.2 % (21.0-51.0); %Monocytes 7.7 % (0.0-10.0); %Neutrophils 46.6 % (42.0-75.0); Hemoglobin 10.4 g/dL (12.0-16.0); Mean Corpuscular HGB CONC 30.9 g/dL (32.0-36.0); Mean Platelet Volume 6.3 fL (7.4-10.4); Platelet Count 409 thou/uL (130-400); RBC Distribution Width 15.8 % (11.5-14.5); Red Blood Cell (RBC) Count 3.36 mill/uL (4.20-5.40); White Blood Cell (WBC) Count 5.4 thou/uL (4.8-10.8)
[2020-01-20 05:43] LABS: ALT (SGPT) 17 U/L (8-55); AST (SGOT) 19 U/L (5-34); Albumin 3.3 g/dL (3.4-4.8); Alkaline Phosphatase 89 U/L (40-110); Anion Gap 15 mmol/L (10-20); BUN (Urea Nitrogen) 15 mg/dL (9.8-20.1); Bilirubin, Total 0.3 mg/dL (0.2-1.2); Calc. Creatinine Clearance 83 mL/min (70-130); Calcium 8.5 mg/dL (7.8-10.44); Carbon Dioxide 24 mmol/L (23-31); Chloride 105 mmol/L (98-107); Estimated GFR-MDRD 76; Globulin 2.3 g/dL (2.4-3.5); Glucose 97 mg/dL (83-110); Potassium 4.5 mmol/L (3.5-5.1); Protein, Total 5.6 g/dL (6.0-8.3); Sodium 139 mmol/L (136-145)
[2020-01-20] MEDS: Ivabradine 5 MG TAB PO SCH (09:06)
[2020-01-20] MEDS: Aspirin 81 mg Enteric Coated Tablet PO SCH (09:06)
[2020-01-20] MEDS: Gabapentin 300 MG CAP PO SCH (09:07)
[2020-01-20] MEDS: Metoprolol Tartrate 25 MG TAB PO SCH (09:08)
[2020-01-20] MEDS: Enoxaparin Sodium 40 MG/0.4 ML SYRINGE SC SCH (09:08)
[2020-01-20] MEDS: Polyethylene Glycol 3350 17 GM Packet PO SCH (09:10)
[2020-01-20 13:48] VITALS: BP 136/65; TEMP 96
--- NOTE | 2020-01-21 01:54 | DIS ---
DATE OF ADMISSION: 01/10/2020 DATE OF DISCHARGE: 01/20/2020 HISTORY: This is a well-developed, well-nourished 79-year-old white female, who was standing at home when she fell. She had a resultant left femoral neck fracture and laceration to her scalp. She was taken to surgical suite where she had an internal fixation done of her left femoral neck and she had paul placed in her scalp laceration. She eventually stabilized. Dr. Layton, her maintenance analyst, saw her and adjusted her medications. She will continue on all of her medications that she is started. The patient states she is doing well and if she does not get discharged today, she will go AMA. We will discharge her to the care of her sons. OBJECTIVE: VITAL SIGNS: Today reveal blood pressure of 129/58, pulse 83, respirations 18 to 20, O2 saturation 95% on room air, T-max 98.4. GENERAL: This is a well-developed, well-nourished, slightly obese white female, in no apparent distress at this time. HEENT: Reveals normocephalic and nontraumatic cranium. Pupils are equal, round, and reactive. Extraocular movements are intact. Nose and throat are slightly dry. NECK: Supple without masses, nodes, or bruits. CHEST: Clear to auscultation. No rales, rhonchi, wheezes, or cough is heard. HEART: Reveals a regular rate and rhythm without murmurs, gallops, or rubs. ABDOMEN: Soft and nontender without organomegaly. Normal bowel sounds are noted. No rebound or guarding is noted. GENITOURINARY: Deferred. EXTREMITIES: Reveal no clubbing, cyanosis, or edema. The patient's surgical site looks good and is not red, is not draining. NEUROLOGIC: Patient is oriented to person, place, and time. ASSESSMENT: 1. Hypertension. 2. Hypotension. The patient was started on midodrine, but has been stopped on that. She has remained normotensive. 3. Hyperlipidemia. 4. Peripheral neuropathy. 5. Sinus tachycardia. 6. Congestive heart failure. 7. Coronary artery disease. 8. Scalp laceration, healed. 9. Left femoral neck fracture, status post open reduction and internal fixation. DISCHARGE MEDICATIONS: Reveal the patient to be on the following; 1. Metoprolol 12.5 b.i.d. 2. Pravastatin 10 mg at bedtime. 3. Ivabradine 5 mg b.i.d., I have given her prescription for that. 4. Raloxifene 60 mg daily. 5. Duloxetine 40 mg daily. 6. Gabapentin 300 mg daily. 7. Iron with multivitamin. PLAN: 1. The patient will be discharged today to the care of her family. She states if she is not discharged, she will go AMA. She has been threatening that for several days. 2. Continue to monitor the patient for signs and symptoms of congestive heart failure. 3. Continue to monitor the patient's heart rate for atrial fibrillation and RVR. 4. Stress ulcer prophylaxis. 5. Decubitus precautions. 6. Encouraged the patient to stop smoking, which she has declined that she would do that. 7. Continue outpatient physical therapy. 8. The patient should follow up with her orthopedic surgeon within the next 2 weeks. 9. The patient should follow up with her maintenance analyst. 10. The patient should follow up with her primary care physician. Job ID: [id number]
== END 2020-01-20 13:51 | disposition left against medical advice (07) | DRG 561 ==
LOC: NAV ACUTE 13:20
PROVIDERS: ADMIT Family Medicine; ATTEND Family Medicine
DX: Z47.89 Encounter for other orthopedic aftercare (principal); I11.0 Hypertensive heart disease with heart failure; E78.5 Hyperlipidemia, unspecified; G62.9 Polyneuropathy, unspecified; I25.10 Atherosclerotic heart disease of native coronary artery without angina pectoris; I50.9 Heart failure, unspecified; E66.9 Obesity, unspecified; F41.9 Anxiety disorder, unspecified; F32.9 Major depressive disorder, single episode, unspecified; I95.2 Hypotension due to drugs; I95.9 Hypotension, unspecified; R00.0 Tachycardia, unspecified; R53.1 Weakness; I48.91 Unspecified atrial fibrillation; Z68.28 Body mass index [BMI] 28.0-28.9, adult; Z53.29 Procedure and treatment not carried out because of patient's decision for other reasons; Z20.828 Contact with and (suspected) exposure to other viral communicable diseases; Z90.710 Acquired absence of both cervix and uterus; Z95.5 Presence of coronary angioplasty implant and graft
CPT/HCPCS: 80053; 81001; 84134; 85025; J1650

== ENCOUNTER 2020-06-05 12:00 | Emergency (ER) | payer MEDICARE | END 2020-06-05 13:40 | disposition home or self-care (01) | LOC: NAV ERS 12:00 | DX: S00.03XA Contusion of scalp, initial encounter (principal); S00.12XA Contusion of left eyelid and periocular area, initial encounter; S00.11XA Contusion of right eyelid and periocular area, initial encounter; S50.811A Abrasion of right forearm, initial encounter; I11.0 Hypertensive heart disease with heart failure; I50.9 Heart failure, unspecified; E78.00 Pure hypercholesterolemia, unspecified; W01.0XXA Fall on same level from slipping, tripping and stumbling without subsequent striking against object, initial encounter | CPT/HCPCS: 70450; 70486; 72125 ==

== ENCOUNTER 2020-07-25 09:38 | Inpatient (IN) | payer MEDICARE ==
[2020-07-25] MEDS ORDERED: Cepastat Lozenges 1 LOZ PO PRN (10:58)
[2020-07-25] MEDS ORDERED: Acetaminophen 650 MG Suppository PR PRN (10:58)
[2020-07-25] MEDS ORDERED: Ondansetron ODT 4 MG TAB SL PRN (10:58)
[2020-07-25] MEDS ORDERED: Artificial Tear Sol 15 ML BOT EA EYE PRN (10:58)
[2020-07-25] MEDS ORDERED: Loperamide HCl 2 MG CAP PO PRN ×2 (10:58)
[2020-07-25] MEDS ORDERED: Eucerin (Mineral Oil/Petrolatum,White) 30 gm Jar TOP PRN (10:58)
[2020-07-25] MEDS: Pravastatin Sodium 20 MG TAB PO SCH (20:29)
[2020-07-25] MEDS: Metoprolol Tartrate 25 MG TAB PO SCH (20:29)
[2020-07-25] MEDS: Ramipril 5 MG CAP PO SCH (20:29)
[2020-07-25] MEDS: Famotidine 20 MG TAB PO SCH (20:30)
[2020-07-25 21:48] LABS: SARS-CoV-2 PCR by NAA Not Detected (NotDetected)
[2020-07-26 05:24] LABS: Anion Gap 11 mmol/L (10-20); BUN (Urea Nitrogen) 9 mg/dL (9.8-20.1); Calc. Creatinine Clearance 82 mL/min (70-130); Carbon Dioxide 25 mmol/L (23-31); Chloride 106 mmol/L (98-107); Glucose 96 mg/dL (83-110); Potassium 3.1 mmol/L (3.5-5.1); Sodium 139 mmol/L (136-145)
[2020-07-26 05:29] LABS: #Eosinphils 0.2 thou/uL (0.0-0.7); #Lymphocytes 1.7 thou/uL (1.20-3.40); #Monocytes 0.4 thou/uL (0.11-0.59); #Neutrophils 2.7 thou/uL (1.40-6.50); %Basophils 0.5 % (0.0-1.0); %Eosinophils 4.5 % (0.0-10.0); %Lymphocytes 33.7 % (21.0-51.0); %Monocytes 8.3 % (0.0-10.0); %Neutrophils 53.1 % (42.0-75.0); Anisocytosis SLIGHT = 6-15 cells (100X) (0-5/hpf); Hypochromia SLIGHT = 6-15 cells (100X) (0-5/hpf); MDiff Complete? YES; Mean Corpuscular HGB CONC 29.2 g/dL (32.0-36.0); Mean Corpuscular Hemoglobin 28.2 pg (27.0-31.0); Mean Corpuscular Volume 96.5 fL (78.0-98.0); Mean Platelet Volume 7.7 fL (7.4-10.4); Ovalocytes SLIGHT = 2-5 cells (100X) (0-1/hpf); Platelet Count 198 thou/uL (130-400); Platelet Morphology Comment Appears Adequate; Poikilocytosis SLIGHT = 6-15 cells (100X) (0-5/hpf); RBC Distribution Width 15.9 % (11.5-14.5); White Blood Cell (WBC) Count 5.1 thou/uL (4.8-10.8)
[2020-07-26] MEDS: Famotidine 20 MG TAB PO SCH ×2 (07:41→20:57)
[2020-07-26] MEDS: DULoxetine 30 MG CAP PO SCH (07:41)
[2020-07-26] MEDS: Aspirin Chewable 81 MG TAB PO SCH (07:41)
[2020-07-26] MEDS: Ramipril 5 MG CAP PO SCH ×2 (07:41→20:57)
[2020-07-26] MEDS: Metoprolol Tartrate 25 MG TAB PO SCH ×2 (07:41→20:57)
[2020-07-26] MEDS: traMADol HCl 50 MG TAB PO PRN (07:45)
[2020-07-26] MEDS: Acetaminophen 325 MG TAB PO PRN (07:46)
[2020-07-26] MEDS: Pravastatin Sodium 20 MG TAB PO SCH (20:57)
[2020-07-27] MEDS: Aspirin Chewable 81 MG TAB PO SCH (07:12)
[2020-07-27] MEDS: Ramipril 5 MG CAP PO SCH ×2 (07:13→20:13)
[2020-07-27] MEDS: Clopidogrel Bisulfate 75 MG TAB PO SCH (07:13)
[2020-07-27] MEDS: Metoprolol Tartrate 25 MG TAB PO SCH ×2 (07:14→20:13)
[2020-07-27] MEDS: Acetaminophen 325 MG TAB PO PRN (07:14)
[2020-07-27] MEDS: traMADol HCl 50 MG TAB PO PRN (07:15)
[2020-07-27] MEDS: Nicotine 21 MG PATCH TD SCH (07:16)
[2020-07-27] MEDS: Potassium Chloride 20 MEQ TAB PO SCH ×2 (07:17→18:12)
[2020-07-27] MEDS: Famotidine 20 MG TAB PO SCH ×2 (07:17→20:13)
[2020-07-27] MEDS: DULoxetine 30 MG CAP PO SCH (07:17)
[2020-07-27] MEDS: Pravastatin Sodium 20 MG TAB PO SCH (20:13)
[2020-07-27 21:40] LABS: Bilirubin Negative (Negative); Blood, Urine Trace (Negative); Glucose, Urine (Dipstick) Negative (Negative); Ketone, Urine Negative (Negative); Leukocyte Moderate (Negative); Nitrite Positive (Negative); Protein, Urine (Dipstick) Negative (Neg-Trace)
[2020-07-27 21:50] LABS: Bacteria/HPF 4+ HPF (None Seen); Clarity Hazy (Clear); RBC/HPF 0-3 HPF (0-3); Squamous Epithelial 0-3 HPF (0-3)
[2020-07-28 06:29] LABS: Anion Gap 12 mmol/L (10-20); BUN (Urea Nitrogen) 13 mg/dL (9.8-20.1); Calc. Creatinine Clearance 85 mL/min (70-130); Calcium 8.4 mg/dL (7.8-10.44); Carbon Dioxide 23 mmol/L (23-31); Chloride 107 mmol/L (98-107); Glucose 96 mg/dL (83-110); Potassium 3.9 mmol/L (3.5-5.1); Sodium 138 mmol/L (136-145)
[2020-07-28] MEDS: Metoprolol Tartrate 25 MG TAB PO SCH ×2 (07:29→20:35)
[2020-07-28] MEDS: Ramipril 5 MG CAP PO SCH ×2 (07:29→20:34)
[2020-07-28] MEDS: Aspirin Chewable 81 MG TAB PO SCH (07:30)
[2020-07-28] MEDS: Famotidine 20 MG TAB PO SCH ×2 (07:31→20:34)
[2020-07-28] MEDS: Clopidogrel Bisulfate 75 MG TAB PO SCH (07:31)
[2020-07-28] MEDS: Bisacodyl 5 MG TAB PO PRN (08:33)
[2020-07-28] MEDS: Nicotine 21 MG PATCH TD SCH (08:34)
[2020-07-28] MEDS: DULoxetine 30 MG CAP PO SCH (08:34)
[2020-07-28] MEDS ORDERED: Ciprofloxacin 500 MG TAB PO SCH (10:30)
[2020-07-28] MEDS ORDERED: cloNIDine 0.1 MG TAB PO SCH (18:45)
[2020-07-28] MEDS: Senokot S 8.6-50 MG TAB PO PRN (20:33)
[2020-07-28] MEDS: Ciprofloxacin 500 MG TAB PO SCH (20:34)
[2020-07-28] MEDS: Guaifenesin DM 100-10/5 ML UDCUP PO PRN (20:34)
[2020-07-28] MEDS: Pravastatin Sodium 20 MG TAB PO SCH (20:35)
[2020-07-29] MEDS: Ciprofloxacin 500 MG TAB PO SCH ×2 (06:22→20:02)
[2020-07-29] MEDS ORDERED: hydrALAZINE 25 MG TAB PO PRN (08:24)
[2020-07-29] MEDS: Nicotine 21 MG PATCH TD SCH (09:35)
[2020-07-29] MEDS: Famotidine 20 MG TAB PO SCH ×2 (09:35→20:02)
[2020-07-29] MEDS: Clopidogrel Bisulfate 75 MG TAB PO SCH (09:35)
[2020-07-29] MEDS: DULoxetine 30 MG CAP PO SCH (09:36)
[2020-07-29] MEDS: Hydrochlorothiazide 25 MG TAB PO SCH ×2 (09:36→20:03)
[2020-07-29] MEDS: Aspirin Chewable 81 MG TAB PO SCH (09:37)
[2020-07-29] MEDS: Ramipril 5 MG CAP PO SCH ×2 (09:37→20:02)
[2020-07-29] MEDS: Metoprolol Tartrate 25 MG TAB PO SCH ×2 (09:38→20:02)
[2020-07-29] MEDS: Senokot S 8.6-50 MG TAB PO PRN (09:45)
[2020-07-29] MEDS: Guaifenesin DM 100-10/5 ML UDCUP PO PRN ×2 (09:45→20:31)
[2020-07-29] MEDS: traMADol HCl 50 MG TAB PO PRN (18:29)
[2020-07-29] MEDS: Bisacodyl 5 MG TAB PO PRN (18:31)
[2020-07-29] MEDS: Pravastatin Sodium 20 MG TAB PO SCH (20:03)
[2020-07-30] MEDS: Ciprofloxacin 500 MG TAB PO SCH ×2 (05:35→20:22)
[2020-07-30] MEDS: Famotidine 20 MG TAB PO SCH ×2 (08:31→20:21)
[2020-07-30] MEDS: Nicotine 21 MG PATCH TD SCH (08:31)
[2020-07-30] MEDS: Aspirin Chewable 81 MG TAB PO SCH (08:31)
[2020-07-30] MEDS: Hydrochlorothiazide 25 MG TAB PO SCH ×2 (08:31→20:21)
[2020-07-30] MEDS: Metoprolol Tartrate 25 MG TAB PO SCH ×2 (08:31→20:23)
[2020-07-30] MEDS: Ramipril 5 MG CAP PO SCH ×2 (08:32→20:22)
[2020-07-30] MEDS: DULoxetine 30 MG CAP PO SCH (08:33)
[2020-07-30] MEDS: Clopidogrel Bisulfate 75 MG TAB PO SCH (08:33)
[2020-07-30] MEDS: Acetaminophen 325 MG TAB PO PRN (12:19)
[2020-07-30] MEDS: Pravastatin Sodium 20 MG TAB PO SCH (20:19)
[2020-07-31] MEDS: Ciprofloxacin 500 MG TAB PO SCH ×2 (06:05→20:28)
[2020-07-31] MEDS: Hydrochlorothiazide 25 MG TAB PO SCH ×2 (08:45→20:30)
[2020-07-31] MEDS: Famotidine 20 MG TAB PO SCH ×2 (08:45→20:29)
[2020-07-31] MEDS: Nicotine 21 MG PATCH TD SCH (08:45)
[2020-07-31] MEDS: Ramipril 5 MG CAP PO SCH ×2 (08:45→20:29)
[2020-07-31] MEDS: Aspirin Chewable 81 MG TAB PO SCH (08:45)
[2020-07-31] MEDS: DULoxetine 30 MG CAP PO SCH (08:46)
[2020-07-31] MEDS: Metoprolol Tartrate 25 MG TAB PO SCH ×2 (08:46→20:29)
[2020-07-31] MEDS: Clopidogrel Bisulfate 75 MG TAB PO SCH (08:46)
[2020-07-31 14:30] LABS: #Basophils 0.1 thou/uL (0.0-0.2); #Eosinphils 0.3 thou/uL (0.0-0.7); #Lymphocytes 1.5 thou/uL (1.20-3.40); #Monocytes 0.6 thou/uL (0.11-0.59); #Neutrophils 3.7 thou/uL (1.40-6.50); %Basophils 0.9 % (0.0-1.0); %Eosinophils 5.7 % (0.0-10.0); %Monocytes 9.4 % (0.0-10.0); Hemoglobin 13.4 g/dL (12.0-16.0); Mean Corpuscular HGB CONC 28.9 g/dL (32.0-36.0); Mean Corpuscular Hemoglobin 26.8 pg (27.0-31.0); Mean Corpuscular Volume 92.7 fL (78.0-98.0); Mean Platelet Volume 8.3 fL (7.4-10.4); Platelet Count 247 thou/uL (130-400); RBC Distribution Width 15.4 % (11.5-14.5); Red Blood Cell (RBC) Count 4.99 mill/uL (4.20-5.40); White Blood Cell (WBC) Count 6.1 thou/uL (4.8-10.8)
[2020-07-31 14:38] LABS: ALT (SGPT) 39 U/L (8-55); AST (SGOT) 46 U/L (5-34); Alkaline Phosphatase 107 U/L (40-110); Anion Gap 15 mmol/L (10-20); BUN (Urea Nitrogen) 26 mg/dL (9.8-20.1); Bilirubin, Total 0.5 mg/dL (0.2-1.2); Calc. Creatinine Clearance 49 mL/min (70-130); Calcium 9.2 mg/dL (7.8-10.44); Carbon Dioxide 22 mmol/L (23-31); Chloride 99 mmol/L (98-107); Globulin 3.4 g/dL (2.4-3.5); Glucose 114 mg/dL (83-110); Protein, Total 7.4 g/dL (5.8-8.1); Sodium 132 mmol/L (136-145)
[2020-08-01] MEDS: Ciprofloxacin 500 MG TAB PO SCH ×2 (06:00→20:45)
[2020-08-01] MEDS: Metoprolol Tartrate 25 MG TAB PO SCH ×2 (08:58→20:45)
[2020-08-01] MEDS: Nicotine 21 MG PATCH TD SCH (08:58)
[2020-08-01] MEDS: DULoxetine 30 MG CAP PO SCH (08:58)
[2020-08-01] MEDS: Clopidogrel Bisulfate 75 MG TAB PO SCH (08:58)
[2020-08-01] MEDS: Hydrochlorothiazide 25 MG TAB PO SCH ×2 (08:58→20:45)
[2020-08-01] MEDS: Famotidine 20 MG TAB PO SCH ×2 (08:58→20:44)
[2020-08-01] MEDS: Ramipril 5 MG CAP PO SCH ×2 (08:59→20:44)
[2020-08-01] MEDS: Aspirin Chewable 81 MG TAB PO SCH (08:59)
[2020-08-01] MEDS ORDERED: Iopamidol 370 76% 100 ML VIAL ONE (09:00)
[2020-08-02] MEDS: Ciprofloxacin 500 MG TAB PO SCH ×2 (05:42→21:48)
[2020-08-02] MEDS: Nicotine 21 MG PATCH TD SCH (08:49)
[2020-08-02] MEDS: Clopidogrel Bisulfate 75 MG TAB PO SCH (08:50)
[2020-08-02] MEDS: Aspirin Chewable 81 MG TAB PO SCH (08:50)
[2020-08-02] MEDS: DULoxetine 30 MG CAP PO SCH (08:51)
[2020-08-02] MEDS: Famotidine 20 MG TAB PO SCH ×2 (08:51→21:48)
[2020-08-02] MEDS: Metoprolol Tartrate 25 MG TAB PO SCH ×2 (08:54→21:48)
[2020-08-02] MEDS: Ramipril 5 MG CAP PO SCH ×2 (08:55→21:48)
[2020-08-02] MEDS: Hydrochlorothiazide 25 MG TAB PO SCH ×2 (08:55→21:47)
[2020-08-02] MEDS: Acetaminophen 325 MG TAB PO PRN (08:59)
[2020-08-02] MEDS ORDERED: Sodium Chloride 0.9% 10 ML ONE (11:29)
[2020-08-02] MEDS: Sodium Chloride 0.9% 1,000 ML IV SCH (11:30)
[2020-08-02] MEDS ORDERED: Cyanocobalamin 1000 MCG/ML VIAL IM SCH (12:15)
[2020-08-03] MEDS: Sodium Chloride 0.9% 1,000 ML IV SCH ×2 (01:10→13:06)
[2020-08-03] MEDS: Metoprolol Tartrate 25 MG TAB PO SCH ×2 (08:30→20:32)
[2020-08-03] MEDS: Famotidine 20 MG TAB PO SCH ×2 (08:30→20:32)
[2020-08-03] MEDS: Ramipril 5 MG CAP PO SCH ×2 (08:30→20:32)
[2020-08-03] MEDS: Clopidogrel Bisulfate 75 MG TAB PO SCH (08:30)
[2020-08-03] MEDS: DULoxetine 30 MG CAP PO SCH (08:30)
[2020-08-03] MEDS: Aspirin Chewable 81 MG TAB PO SCH (08:30)
[2020-08-03] MEDS: Hydrochlorothiazide 25 MG TAB PO SCH ×2 (08:31→20:33)
[2020-08-03] MEDS: Nicotine 7 MG PATCH TOP SCH ×2 (08:32→15:24)
[2020-08-03] MEDS: Cyanocobalamin 1000 MCG/ML VIAL IM SCH (08:32)
[2020-08-03] MEDS ORDERED: Nicotine 7 MG PATCH TD SCH (15:30)
[2020-08-04] MEDS: Sodium Chloride 0.9% 1,000 ML IV SCH (04:12)
[2020-08-04] MEDS ORDERED: Sodium Chloride 0.9% 10 ML ONE (08:42)
[2020-08-04] MEDS: Cyanocobalamin 1000 MCG/ML VIAL IM SCH (08:43)
[2020-08-04] MEDS: Ramipril 5 MG CAP PO SCH ×2 (08:44→21:12)
[2020-08-04] MEDS: DULoxetine 30 MG CAP PO SCH (08:44)
[2020-08-04] MEDS: Famotidine 20 MG TAB PO SCH ×2 (08:44→21:12)
[2020-08-04] MEDS: Metoprolol Tartrate 25 MG TAB PO SCH ×2 (08:44→21:12)
[2020-08-04] MEDS: Aspirin Chewable 81 MG TAB PO SCH (08:44)
[2020-08-04] MEDS: Clopidogrel Bisulfate 75 MG TAB PO SCH (08:44)
[2020-08-04] MEDS: Nicotine 7 MG PATCH TOP SCH ×2 (08:45→11:30)
[2020-08-04] MEDS: Guaifenesin DM 100-10/5 ML UDCUP PO PRN (08:53)
[2020-08-04] MEDS ORDERED: Nicotine 7 MG PATCH TOP SCH (12:00)
[2020-08-04 13:17] LABS: #Basophils 0.1 thou/uL (0.0-0.2); #Eosinphils 0.2 thou/uL (0.0-0.7); #Lymphocytes 1.8 thou/uL (1.20-3.40); #Monocytes 0.6 thou/uL (0.11-0.59); #Neutrophils 3.7 thou/uL (1.40-6.50); %Basophils 1.3 % (0.0-1.0); %Eosinophils 2.9 % (0.0-10.0); %Lymphocytes 28.2 % (21.0-51.0); %Monocytes 8.9 % (0.0-10.0); %Neutrophils 58.7 % (42.0-75.0); Hemoglobin 11.7 g/dL (12.0-16.0); Mean Corpuscular HGB CONC 28.6 g/dL (32.0-36.0); Mean Corpuscular Hemoglobin 27.3 pg (27.0-31.0); Mean Corpuscular Volume 95.5 fL (78.0-98.0); Mean Platelet Volume 10.3 fL (7.4-10.4); Platelet Count 200 thou/uL (130-400); Red Blood Cell (RBC) Count 4.28 mill/uL (4.20-5.40); White Blood Cell (WBC) Count 6.3 thou/uL (4.8-10.8)
[2020-08-04 13:29] LABS: Anion Gap 13 mmol/L (10-20); BUN (Urea Nitrogen) 23 mg/dL (9.8-20.1); Calc. Creatinine Clearance 68 mL/min (70-130); Calcium 8.4 mg/dL (7.8-10.44); Carbon Dioxide 23 mmol/L (23-31); Chloride 100 mmol/L (98-107); Glucose 97 mg/dL (83-110); Potassium 4.1 mmol/L (3.5-5.1); Sodium 132 mmol/L (136-145)
[2020-08-05] MEDS: DULoxetine 30 MG CAP PO SCH (09:28)
[2020-08-05] MEDS: Aspirin Chewable 81 MG TAB PO SCH (09:29)
[2020-08-05] MEDS: Metoprolol Tartrate 25 MG TAB PO SCH ×2 (09:29→21:28)
[2020-08-05] MEDS: Ramipril 5 MG CAP PO SCH ×2 (09:30→21:30)
[2020-08-05] MEDS: Cyanocobalamin 1000 MCG/ML VIAL IM SCH (09:30)
[2020-08-05] MEDS: Clopidogrel Bisulfate 75 MG TAB PO SCH (09:30)
[2020-08-05] MEDS: Famotidine 20 MG TAB PO SCH ×2 (09:30→21:29)
[2020-08-05] MEDS: Nicotine 7 MG PATCH TOP SCH (11:37)
[2020-08-05 18:53] LABS: Bilirubin Negative (Negative); Blood, Urine Negative (Negative); Clarity Clear (Clear); Glucose, Urine (Dipstick) Negative (Negative); Ketone, Urine Negative (Negative); Leukocyte Negative (Negative); Nitrite Negative (Negative); Protein, Urine (Dipstick) Negative (Neg-Trace); Urobilinogen 0.2 mg/dL (Less than 2)
[2020-08-05 19:13] LABS: Urine Culture Reflex No No
[2020-08-05 19:17] LABS: Bacteria/HPF Rare-Few HPF (None Seen); RBC/HPF 0-3 HPF (0-3); Squamous Epithelial 0-3 HPF (0-3); WBC/HPF 0-3 HPF (0-3); Yeast-Hyphae Rare HPF (None Seen)
[2020-08-06] MEDS: Cyanocobalamin 1000 MCG/ML VIAL IM SCH (08:49)
[2020-08-06] MEDS: Ramipril 5 MG CAP PO SCH ×2 (08:50→21:59)
[2020-08-06] MEDS: Aspirin Chewable 81 MG TAB PO SCH (08:50)
[2020-08-06] MEDS: DULoxetine 30 MG CAP PO SCH (08:51)
[2020-08-06] MEDS: Metoprolol Tartrate 25 MG TAB PO SCH ×2 (08:51→22:00)
[2020-08-06] MEDS: Famotidine 20 MG TAB PO SCH ×2 (08:51→21:59)
[2020-08-06] MEDS: Acetaminophen 325 MG TAB PO PRN (08:51)
[2020-08-06] MEDS: Clopidogrel Bisulfate 75 MG TAB PO SCH (08:51)
[2020-08-06] MEDS: Nicotine 7 MG PATCH TOP SCH (11:49)
[2020-08-07] MEDS: Aspirin Chewable 81 MG TAB PO SCH (08:39)
[2020-08-07] MEDS: Ramipril 5 MG CAP PO SCH ×2 (08:39→21:24)
[2020-08-07] MEDS: Clopidogrel Bisulfate 75 MG TAB PO SCH (08:39)
[2020-08-07] MEDS: Famotidine 20 MG TAB PO SCH ×2 (08:39→21:24)
[2020-08-07] MEDS: DULoxetine 30 MG CAP PO SCH (08:39)
[2020-08-07] MEDS: Acetaminophen 325 MG TAB PO PRN (08:40)
[2020-08-07] MEDS: Metoprolol Tartrate 25 MG TAB PO SCH ×2 (08:40→21:24)
[2020-08-07] MEDS: Cyanocobalamin 1000 MCG/ML VIAL IM SCH (08:41)
[2020-08-07] MEDS: Nicotine 7 MG PATCH TOP SCH (13:00)
[2020-08-08] MEDS: Famotidine 20 MG TAB PO SCH ×2 (08:54→20:00)
[2020-08-08] MEDS: Aspirin Chewable 81 MG TAB PO SCH (08:54)
[2020-08-08] MEDS: DULoxetine 30 MG CAP PO SCH (08:54)
[2020-08-08] MEDS: Clopidogrel Bisulfate 75 MG TAB PO SCH (08:55)
[2020-08-08] MEDS: Ramipril 5 MG CAP PO SCH ×2 (08:55→20:00)
[2020-08-08] MEDS: Metoprolol Tartrate 25 MG TAB PO SCH ×2 (08:55→20:00)
[2020-08-08] MEDS ORDERED: Fluconazole 100 MG TAB PO SCH (13:00)
[2020-08-08] MEDS: Nicotine 7 MG PATCH TOP SCH (13:02)
[2020-08-09] MEDS: Ramipril 5 MG CAP PO SCH ×2 (08:49→20:31)
[2020-08-09] MEDS: Aspirin Chewable 81 MG TAB PO SCH (08:50)
[2020-08-09] MEDS: Clopidogrel Bisulfate 75 MG TAB PO SCH (08:50)
[2020-08-09] MEDS: Famotidine 20 MG TAB PO SCH ×2 (08:50→20:31)
[2020-08-09] MEDS: DULoxetine 30 MG CAP PO SCH (08:50)
[2020-08-09] MEDS: Metoprolol Tartrate 25 MG TAB PO SCH ×2 (08:50→20:31)
[2020-08-09] MEDS: Nicotine 7 MG PATCH TOP SCH (12:53)
[2020-08-10] MEDS: Clopidogrel Bisulfate 75 MG TAB PO SCH (09:14)
[2020-08-10] MEDS: Aspirin Chewable 81 MG TAB PO SCH (09:14)
[2020-08-10] MEDS: Senokot S 8.6-50 MG TAB PO PRN (09:14)
[2020-08-10] MEDS: Ramipril 5 MG CAP PO SCH ×2 (09:14→21:26)
[2020-08-10] MEDS: Metoprolol Tartrate 25 MG TAB PO SCH ×2 (09:14→21:27)
[2020-08-10] MEDS: DULoxetine 30 MG CAP PO SCH (09:15)
[2020-08-10] MEDS: Famotidine 20 MG TAB PO SCH ×2 (09:15→21:27)
[2020-08-10] MEDS: Nicotine 7 MG PATCH TOP SCH (12:43)
[2020-08-11] MEDS: Clopidogrel Bisulfate 75 MG TAB PO SCH (09:22)
[2020-08-11] MEDS: Metoprolol Tartrate 25 MG TAB PO SCH ×2 (09:22→20:10)
[2020-08-11] MEDS: Famotidine 20 MG TAB PO SCH ×2 (09:22→20:09)
[2020-08-11] MEDS: Aspirin Chewable 81 MG TAB PO SCH (09:22)
[2020-08-11] MEDS: DULoxetine 30 MG CAP PO SCH (09:22)
[2020-08-11] MEDS: Ramipril 5 MG CAP PO SCH ×2 (09:22→20:09)
[2020-08-11] MEDS: Nicotine 7 MG PATCH TOP SCH (11:45)
[2020-08-12] MEDS: Aspirin Chewable 81 MG TAB PO SCH (10:52)
[2020-08-12] MEDS: DULoxetine 30 MG CAP PO SCH (10:53)
[2020-08-12] MEDS: Ramipril 5 MG CAP PO SCH ×2 (10:53→20:57)
[2020-08-12] MEDS: Clopidogrel Bisulfate 75 MG TAB PO SCH (10:53)
[2020-08-12] MEDS: Famotidine 20 MG TAB PO SCH ×2 (10:54→20:57)
[2020-08-12] MEDS: Metoprolol Tartrate 25 MG TAB PO SCH ×2 (10:54→20:57)
[2020-08-12] MEDS: Nicotine 7 MG PATCH TOP SCH (12:24)
[2020-08-12] MEDS ORDERED: Sodium Chloride 0.9% 10 ML ONE (13:58)
[2020-08-12] MEDS: Sodium Chloride 0.9% 1,000 ML IV SCH (14:26)
[2020-08-12 20:22] VITALS: TEMP 97.8
[2020-08-13] MEDS: Sodium Chloride 0.9% 1,000 ML IV SCH (03:40)
[2020-08-13 05:34] VITALS: BMI 27.6
[2020-08-13] MEDS: DULoxetine 30 MG CAP PO SCH (08:10)
[2020-08-13] MEDS: Aspirin Chewable 81 MG TAB PO SCH (08:10)
[2020-08-13] MEDS: Ramipril 5 MG CAP PO SCH (08:10)
[2020-08-13] MEDS: Metoprolol Tartrate 25 MG TAB PO SCH (08:11)
[2020-08-13] MEDS: Clopidogrel Bisulfate 75 MG TAB PO SCH (08:11)
[2020-08-13] MEDS: Famotidine 20 MG TAB PO SCH (08:11)
[2020-08-13 09:04] VITALS: BP 127/63
== END 2020-08-13 11:55 | disposition home health service (06) | DRG 948 ==
LOC: NAV ACUTE 09:38
PROVIDERS: ADMIT Family Medicine; ATTEND Family Medicine
DX: R53.1 Weakness (principal); N39.0 Urinary tract infection, site not specified; G89.4 Chronic pain syndrome; E78.5 Hyperlipidemia, unspecified; I25.10 Atherosclerotic heart disease of native coronary artery without angina pectoris; I11.9 Hypertensive heart disease without heart failure; F41.9 Anxiety disorder, unspecified; F32.9 Major depressive disorder, single episode, unspecified; F17.210 Nicotine dependence, cigarettes, uncomplicated; M19.90 Unspecified osteoarthritis, unspecified site; E86.0 Dehydration; W18.30XA Fall on same level, unspecified, initial encounter; F03.90 Unspecified dementia, unspecified severity, without behavioral disturbance, psychotic disturbance, mood disturbance, and anxiety; Z95.5 Presence of coronary angioplasty implant and graft; Z90.710 Acquired absence of both cervix and uterus; Z83.3 Family history of diabetes mellitus; Z82.49 Family history of ischemic heart disease and other diseases of the circulatory system
CPT/HCPCS: 70450; 71045; 74160; 80048; 80053; 81001; 81003; 81015; 82607; 84425; 85025; 87077; 87086; 87186; 87635; J3420; J7050; J7620; Q0162; Q9967; U0003; U0005

== ENCOUNTER 2020-12-29 11:21 | Outpatient (CLI) | payer MEDICARE | END 2020-12-29 11:22 | disposition home or self-care (01) | LOC: NAV RAD 11:21 | PROVIDERS: ATTEND Family Medicine | DX: M25.552 Pain in left hip (principal); M25.551 Pain in right hip; I10 Essential (primary) hypertension; R29.6 Repeated falls; Z96.642 Presence of left artificial hip joint ==

== ENCOUNTER 2021-01-15 14:04 | Emergency (ER) | payer MEDICARE ==
[2021-01-15 14:58] LABS: #Basophils 0.1 thou/uL (0.0-0.2); #Eosinphils 0.2 thou/uL (0.0-0.7); #Monocytes 0.3 thou/uL (0.11-0.59); #Neutrophils 3.5 thou/uL (1.40-6.50); %Basophils 1.4 % (0.0-1.0); %Eosinophils 3.6 % (0.0-10.0); %Lymphocytes 32.1 % (21.0-51.0); %Monocytes 5.4 % (0.0-10.0); %Neutrophils 57.5 % (42.0-75.0); Hemoglobin 12.3 g/dL (12.0-16.0); Mean Corpuscular HGB CONC 30.9 g/dL (32.0-36.0); Mean Corpuscular Hemoglobin 29.6 pg (27.0-31.0); Mean Corpuscular Volume 95.9 fL (78.0-98.0); Mean Platelet Volume 7.8 fL (7.4-10.4); Platelet Count 215 thou/uL (130-400); RBC Distribution Width 15.9 % (11.5-14.5); Red Blood Cell (RBC) Count 4.17 mill/uL (4.20-5.40); White Blood Cell (WBC) Count 6.2 thou/uL (4.8-10.8)
[2021-01-15 15:15] LABS: ALT (SGPT) 14 U/L (8-55); AST (SGOT) 21 U/L (5-34); Albumin 3.6 g/dL (3.4-4.8); Alkaline Phosphatase 96 U/L (40-110); Anion Gap 14 mmol/L (10-20); BUN (Urea Nitrogen) 16 mg/dL (9.8-20.1); Bilirubin, Total 0.6 mg/dL (0.2-1.2); Calc. Creatinine Clearance 0 mL/min (70-130); Calcium 8.6 mg/dL (7.8-10.44); Carbon Dioxide 28 mmol/L (23-31); Chloride 102 mmol/L (98-107); Glucose 106 mg/dL (83-110); Protein, Total 6.6 g/dL (5.8-8.1); Sodium 141 mmol/L (136-145)
[2021-01-15 16:04] LABS: Bilirubin Negative (Negative); Blood, Urine Trace (Negative); Clarity Clear (Clear); Glucose, Urine (Dipstick) Negative (Negative); Ketone, Urine Negative (Negative); Leukocyte Negative (Negative); Nitrite Negative (Negative); Protein, Urine (Dipstick) Negative (Neg-Trace); Urobilinogen 0.2 mg/dL (Less than 2)
[2021-01-15 16:26] LABS: RBC/HPF 0-3 HPF (0-3); Squamous Epithelial 0-3 HPF (0-3); WBC/HPF 0-3 HPF (0-3)
== END 2021-01-15 17:00 | disposition home or self-care (01) ==
LOC: NAV ERS 14:04
DX: R41.82 Altered mental status, unspecified (principal); I11.0 Hypertensive heart disease with heart failure; I50.9 Heart failure, unspecified; E78.00 Pure hypercholesterolemia, unspecified; I25.2 Old myocardial infarction; F17.210 Nicotine dependence, cigarettes, uncomplicated; Z79.82 Long term (current) use of aspirin; Z79.899 Other long term (current) drug therapy
CPT/HCPCS: 51701; 70450; 71045; 80053; 81003; 81015; 83605; 84484; 85025

== ENCOUNTER 2021-02-08 08:27 | Observation (INO) | payer MEDICARE ==
[2021-02-08] MEDS ORDERED: HYDROcodone/Acetaminophen 5/325 mg Tablet ONE (09:07)
[2021-02-08 09:39] LABS: #Lymphocytes 1.5 thou/uL (1.20-3.40); #Monocytes 0.3 thou/uL (0.11-0.59); #Neutrophils 5.7 thou/uL (1.40-6.50); %Basophils 0.5 % (0.0-1.0); %Eosinophils 0.4 % (0.0-10.0); %Lymphocytes 19.8 % (21.0-51.0); %Monocytes 4.4 % (0.0-10.0); Mean Corpuscular HGB CONC 30.5 g/dL (32.0-36.0); Mean Corpuscular Hemoglobin 29.6 pg (27.0-31.0); Mean Corpuscular Volume 97.1 fL (78.0-98.0); Mean Platelet Volume 7.4 fL (7.4-10.4); Platelet Count 228 thou/uL (130-400); RBC Distribution Width 15.5 % (11.5-14.5); Red Blood Cell (RBC) Count 4.03 mill/uL (4.20-5.40); White Blood Cell (WBC) Count 7.5 thou/uL (4.8-10.8)
[2021-02-08 09:45] LABS: Bilirubin Negative (Negative); Blood, Urine Negative (Negative); Clarity Clear (Clear); Glucose, Urine (Dipstick) Negative (Negative); Ketone, Urine Negative (Negative); Leukocyte Negative (Negative); Nitrite Negative (Negative); Protein, Urine (Dipstick) Negative (Neg-Trace); Specific Gravity, Urine 1.025 (1.005-1.030); Urobilinogen 0.2 mg/dL (Less than 2)
[2021-02-08 10:00] LABS: ALT (SGPT) 12 U/L (8-55); AST (SGOT) 17 U/L (5-34); Albumin 3.5 g/dL (3.4-4.8); Alkaline Phosphatase 90 U/L (40-110); Anion Gap 12 mmol/L (10-20); BUN (Urea Nitrogen) 15 mg/dL (9.8-20.1); Bilirubin, Total 0.5 mg/dL (0.2-1.2); Calc. Creatinine Clearance 0 mL/min (70-130); Calcium 8.7 mg/dL (7.8-10.44); Carbon Dioxide 29 mmol/L (23-31); Chloride 100 mmol/L (98-107); Globulin 3.1 g/dL (2.4-3.5); Glucose 149 mg/dL (83-110); Protein, Total 6.6 g/dL (5.8-8.1); Sodium 138 mmol/L (136-145)
[2021-02-08 10:03] LABS: Potassium 2.8 mmol/L (3.5-5.1)
[2021-02-08] MEDS ORDERED: predniSONE 20 MG TAB ONE (11:24)
[2021-02-08] MEDS ORDERED: Potassium Chloride 20 MEQ TAB ONE (11:26)
[2021-02-08 13:42] VITALS: BMI 28.5
[2021-02-08 14:21] LABS: SARS-CoV-2 NAA Rapid Test Not Detected (NotDetected)
[2021-02-08] MEDS ORDERED: Acetaminophen 325 MG TAB PO PRN (15:00)
[2021-02-08] MEDS ORDERED: Ondansetron PF 4 MG/2 ML Vial IVP PRN (15:00)
[2021-02-08] MEDS ORDERED: Ondansetron ODT 4 MG TAB SL PRN (15:00)
[2021-02-08] MEDS ORDERED: Loperamide HCl 2 MG CAP PO PRN ×2 (15:54)
[2021-02-08] MEDS ORDERED: Senokot S 8.6-50 MG TAB PO PRN (15:54)
[2021-02-08] MEDS ORDERED: Guaifenesin DM 100-10/5 ML UDCUP PO PRN (15:54)
[2021-02-08] MEDS ORDERED: Bisacodyl 5 MG TAB PO PRN (15:54)
[2021-02-08] MEDS ORDERED: Bisacodyl 10 MG SUPP PR PRN (15:54)
[2021-02-08] MEDS ORDERED: Furosemide 20 MG TAB PO PRN (15:58)
[2021-02-08] MEDS ORDERED: Enoxaparin Sodium 40 MG/0.4 ML SYRINGE SC SCH (16:00)
[2021-02-08] MEDS: Nicotine 21 MG PATCH TD SCH (16:49)
[2021-02-08] MEDS: Ramipril 5 MG CAP PO SCH (20:38)
[2021-02-08] MEDS: Famotidine 20 MG TAB PO SCH (20:38)
[2021-02-08] MEDS: Clopidogrel Bisulfate 75 MG TAB PO SCH (20:39)
[2021-02-08] MEDS: Metoprolol Tartrate 25 MG TAB PO SCH (20:39)
[2021-02-08] MEDS ORDERED: Potassium Chloride 20 MEQ TAB PO SCH (21:00)
[2021-02-09 06:56] LABS: Anion Gap 9 mmol/L (10-20); BUN (Urea Nitrogen) 17 mg/dL (9.8-20.1); Calc. Creatinine Clearance 84 mL/min (70-130); Calcium 8.5 mg/dL (7.8-10.44); Carbon Dioxide 28 mmol/L (23-31); Chloride 106 mmol/L (98-107); Glucose 99 mg/dL (83-110); Potassium 3.1 mmol/L (3.5-5.1); Sodium 140 mmol/L (136-145)
[2021-02-09 07:14] LABS: #Basophils 0.1 thou/uL (0.0-0.2); #Eosinphils 0.2 thou/uL (0.0-0.7); #Lymphocytes 2.2 thou/uL (1.20-3.40); #Monocytes 0.4 thou/uL (0.11-0.59); #Neutrophils 2.9 thou/uL (1.40-6.50); %Eosinophils 2.7 % (0.0-10.0); %Lymphocytes 38.4 % (21.0-51.0); %Monocytes 6.5 % (0.0-10.0); %Neutrophils 51.4 % (42.0-75.0); Hemoglobin 10.1 g/dL (12.0-16.0); Mean Corpuscular HGB CONC 32.1 g/dL (32.0-36.0); Mean Corpuscular Hemoglobin 30.9 pg (27.0-31.0); Mean Corpuscular Volume 96.1 fL (78.0-98.0); Mean Platelet Volume 8.5 fL (7.4-10.4); Platelet Count 199 thou/uL (130-400); RBC Distribution Width 15.3 % (11.5-14.5); Red Blood Cell (RBC) Count 3.28 mill/uL (4.20-5.40); White Blood Cell (WBC) Count 5.7 thou/uL (4.8-10.8)
[2021-02-09] MEDS: Acetaminophen 325 MG TAB PO PRN ×3 (08:08→16:36)
[2021-02-09] MEDS: Aspirin 81 mg Enteric Coated Tablet PO SCH (08:10)
[2021-02-09] MEDS: DULoxetine 30 MG CAP PO SCH (08:11)
[2021-02-09] MEDS: Ramipril 5 MG CAP PO SCH ×2 (08:11→20:28)
[2021-02-09] MEDS: Famotidine 20 MG TAB PO SCH ×2 (08:12→20:28)
[2021-02-09] MEDS: Metoprolol Tartrate 25 MG TAB PO SCH ×2 (08:12→20:28)
[2021-02-09] MEDS ORDERED: Enoxaparin Sodium 40 MG/0.4 ML SYRINGE SC SCH (09:00)
[2021-02-09] MEDS ORDERED: Potassium Chloride 20 MEQ TAB PO SCH (13:30)
[2021-02-09] MEDS: traMADol HCl 50 MG TAB PO PRN ×2 (13:33→20:27)
[2021-02-09] MEDS: Nicotine 21 MG PATCH TD SCH (16:37)
[2021-02-09 16:41] LABS: Anion Gap 9 mmol/L (10-20); BUN (Urea Nitrogen) 19 mg/dL (9.8-20.1); Calc. Creatinine Clearance 72 mL/min (70-130); Calcium 8.4 mg/dL (7.8-10.44); Carbon Dioxide 29 mmol/L (23-31); Chloride 105 mmol/L (98-107); Glucose 96 mg/dL (83-110); Potassium 3.7 mmol/L (3.5-5.1); Sodium 139 mmol/L (136-145)
[2021-02-09] MEDS: Clopidogrel Bisulfate 75 MG TAB PO SCH (20:29)
[2021-02-10 06:36] LABS: Anion Gap 10 mmol/L (10-20); BUN (Urea Nitrogen) 16 mg/dL (9.8-20.1); Calc. Creatinine Clearance 80 mL/min (70-130); Calcium 8.5 mg/dL (7.8-10.44); Carbon Dioxide 28 mmol/L (23-31); Chloride 107 mmol/L (98-107); Glucose 89 mg/dL (83-110); Potassium 3.6 mmol/L (3.5-5.1); Sodium 141 mmol/L (136-145)
[2021-02-10] MEDS: Aspirin 81 mg Enteric Coated Tablet PO SCH (08:27)
[2021-02-10] MEDS: Metoprolol Tartrate 25 MG TAB PO SCH (08:27)
[2021-02-10] MEDS: Famotidine 20 MG TAB PO SCH (08:27)
[2021-02-10] MEDS: DULoxetine 30 MG CAP PO SCH (08:27)
[2021-02-10] MEDS: Ramipril 5 MG CAP PO SCH (08:28)
[2021-02-10] MEDS: traMADol HCl 50 MG TAB PO PRN (08:28)
[2021-02-10 12:18] VITALS: BP 131/76; TEMP 97.6
== END 2021-02-10 13:18 | disposition swing bed (61) ==
LOC: NAV ERS 08:27 → NAV ACUTE 11:56
PROVIDERS: ADMIT Family Medicine; ATTEND Family Medicine
DX: E87.6 Hypokalemia (principal); M62.81 Muscle weakness (generalized); I25.10 Atherosclerotic heart disease of native coronary artery without angina pectoris; I11.9 Hypertensive heart disease without heart failure; I73.9 Peripheral vascular disease, unspecified; M54.9 Dorsalgia, unspecified; R41.81 Age-related cognitive decline; G89.4 Chronic pain syndrome; M89.40 Other hypertrophic osteoarthropathy, unspecified site; F17.210 Nicotine dependence, cigarettes, uncomplicated; E78.5 Hyperlipidemia, unspecified; R29.6 Repeated falls; Z74.09 Other reduced mobility; Z79.02 Long term (current) use of antithrombotics/antiplatelets; Z79.810 Long term (current) use of selective estrogen receptor modulators (SERMs); Z79.82 Long term (current) use of aspirin; Z79.899 Other long term (current) drug therapy; Z96.642 Presence of left artificial hip joint; Z20.822 Contact with and (suspected) exposure to COVID-19
CPT/HCPCS: 0240U; 36415; 51701; 80048; 80053; 81003; 85025; G0378; J7512

== ENCOUNTER 2021-02-10 12:00 | Inpatient (IN) | payer MEDICARE ==
[2021-02-10] MEDS ORDERED: Guaifenesin DM 100-10/5 ML UDCUP PO PRN (12:40)
[2021-02-10] MEDS ORDERED: Loperamide HCl 2 MG CAP PO PRN ×2 (12:40)
[2021-02-10] MEDS ORDERED: Bisacodyl 10 MG SUPP PR PRN (12:40)
[2021-02-10] MEDS ORDERED: Furosemide 20 MG TAB PO PRN (12:52)
[2021-02-10] MEDS: traMADol HCl 50 MG TAB PO PRN (19:39)
[2021-02-10] MEDS: Famotidine 20 MG TAB PO SCH (20:04)
[2021-02-10] MEDS: Ramipril 5 MG CAP PO SCH (20:04)
[2021-02-10] MEDS: Metoprolol Tartrate 25 MG TAB PO SCH (20:04)
[2021-02-10] MEDS: Clopidogrel Bisulfate 75 MG TAB PO SCH (20:04)
[2021-02-11 06:09] LABS: Anion Gap 9 mmol/L (10-20); BUN (Urea Nitrogen) 19 mg/dL (9.8-20.1); Calc. Creatinine Clearance 81 mL/min (70-130); Calcium 8.5 mg/dL (7.8-10.44); Carbon Dioxide 26 mmol/L (23-31); Chloride 108 mmol/L (98-107); Glucose 93 mg/dL (83-110); Potassium 3.8 mmol/L (3.5-5.1); Sodium 139 mmol/L (136-145)
[2021-02-11] MEDS: traMADol HCl 50 MG TAB PO PRN (06:32)
[2021-02-11] MEDS: Metoprolol Tartrate 25 MG TAB PO SCH ×2 (08:15→20:10)
[2021-02-11] MEDS: Famotidine 20 MG TAB PO SCH ×2 (08:15→20:10)
[2021-02-11] MEDS: Nicotine 21 MG PATCH TD SCH (08:15)
[2021-02-11] MEDS: Aspirin 81 mg Enteric Coated Tablet PO SCH (08:15)
[2021-02-11] MEDS: Ramipril 5 MG CAP PO SCH ×2 (08:16→20:10)
[2021-02-11] MEDS: Senokot S 8.6-50 MG TAB PO PRN (08:16)
[2021-02-11] MEDS: Clopidogrel Bisulfate 75 MG TAB PO SCH (20:10)
[2021-02-12 06:36] LABS: Anion Gap 9 mmol/L (10-20); BUN (Urea Nitrogen) 19 mg/dL (9.8-20.1); Calc. Creatinine Clearance 78 mL/min (70-130); Calcium 8.7 mg/dL (7.8-10.44); Carbon Dioxide 25 mmol/L (23-31); Chloride 108 mmol/L (98-107); Potassium 3.9 mmol/L (3.5-5.1); Sodium 138 mmol/L (136-145)
[2021-02-12 06:57] LABS: Glucose 95 mg/dL (83-110)
[2021-02-12] MEDS: traMADol HCl 50 MG TAB PO PRN (08:09)
[2021-02-12] MEDS: Nicotine 21 MG PATCH TD SCH (08:15)
[2021-02-12] MEDS: Ramipril 5 MG CAP PO SCH ×2 (08:16→20:30)
[2021-02-12] MEDS: Famotidine 20 MG TAB PO SCH ×2 (08:16→20:25)
[2021-02-12] MEDS: Aspirin 81 mg Enteric Coated Tablet PO SCH (08:16)
[2021-02-12] MEDS: Metoprolol Tartrate 25 MG TAB PO SCH ×2 (08:16→20:26)
[2021-02-12] MEDS ORDERED: Sodium Chloride 0.9% 1,000 ML IV SCH (12:45)
[2021-02-12] MEDS ORDERED: Sodium Chloride 0.9% 10 ML ONE (12:53)
[2021-02-12] MEDS: Clopidogrel Bisulfate 75 MG TAB PO SCH (20:25)
[2021-02-13] MEDS ORDERED: Sodium Chloride 0.9% 10 ML ONE (08:01)
[2021-02-13] MEDS: traMADol HCl 50 MG TAB PO PRN (08:15)
[2021-02-13] MEDS: Famotidine 20 MG TAB PO SCH ×2 (08:18→21:01)
[2021-02-13] MEDS: Ramipril 5 MG CAP PO SCH ×2 (08:18→21:01)
[2021-02-13] MEDS: Nicotine 21 MG PATCH TD SCH (08:18)
[2021-02-13] MEDS: Metoprolol Tartrate 25 MG TAB PO SCH ×2 (08:19→21:01)
[2021-02-13] MEDS: Aspirin 81 mg Enteric Coated Tablet PO SCH (08:19)
[2021-02-13] MEDS: Clopidogrel Bisulfate 75 MG TAB PO SCH (21:01)
[2021-02-14] MEDS: Famotidine 20 MG TAB PO SCH ×2 (10:09→20:59)
[2021-02-14] MEDS: Metoprolol Tartrate 25 MG TAB PO SCH ×2 (10:09→20:59)
[2021-02-14] MEDS: DULoxetine 30 MG CAP PO SCH (10:10)
[2021-02-14] MEDS: Ramipril 5 MG CAP PO SCH ×2 (10:11→20:57)
[2021-02-14] MEDS: Aspirin 81 mg Enteric Coated Tablet PO SCH (10:12)
[2021-02-14] MEDS: Nicotine 21 MG PATCH TD SCH (10:13)
[2021-02-14] MEDS: Clopidogrel Bisulfate 75 MG TAB PO SCH (20:58)
[2021-02-14] MEDS: Acetaminophen 325 MG TAB PO PRN (20:58)
[2021-02-15 05:12] LABS: Hemoglobin 10.1 g/dL (12.0-16.0); Mean Corpuscular Hemoglobin 30.4 pg (27.0-31.0); Mean Corpuscular Volume 97.9 fL (78.0-98.0); Red Blood Cell (RBC) Count 3.33 mill/uL (4.20-5.40); White Blood Cell (WBC) Count 4.2 thou/uL (4.8-10.8)
[2021-02-15 05:13] LABS: #Eosinphils 0.2 thou/uL (0.0-0.7); #Lymphocytes 1.8 thou/uL (1.20-3.40); #Monocytes 0.4 thou/uL (0.11-0.59); #Neutrophils 1.8 thou/uL (1.40-6.50); %Basophils 0.9 % (0.0-1.0); %Eosinophils 4.5 % (0.0-10.0); %Lymphocytes 43.6 % (21.0-51.0); %Neutrophils 42.1 % (42.0-75.0); Manual Diff?? NO; Mean Platelet Volume 7.3 fL (7.4-10.4); Platelet Count 236 thou/uL (130-400); RBC Distribution Width 16.1 % (11.5-14.5)
[2021-02-15 05:23] LABS: Anion Gap 10 mmol/L (10-20); BUN (Urea Nitrogen) 15 mg/dL (9.8-20.1); Calc. Creatinine Clearance 83 mL/min (70-130); Calcium 8.5 mg/dL (7.8-10.44); Carbon Dioxide 21 mmol/L (23-31); Chloride 109 mmol/L (98-107); Glucose 98 mg/dL (83-110); Potassium 3.7 mmol/L (3.5-5.1); Sodium 136 mmol/L (136-145)
[2021-02-15] MEDS: Nicotine 21 MG PATCH TD SCH (08:35)
[2021-02-15] MEDS: Aspirin 81 mg Enteric Coated Tablet PO SCH (08:35)
[2021-02-15] MEDS: Famotidine 20 MG TAB PO SCH ×2 (08:35→21:00)
[2021-02-15] MEDS: DULoxetine 30 MG CAP PO SCH (08:35)
[2021-02-15] MEDS: Metoprolol Tartrate 25 MG TAB PO SCH ×2 (08:35→21:00)
[2021-02-15] MEDS: Acetaminophen 325 MG TAB PO PRN ×2 (08:37→21:00)
[2021-02-15] MEDS: Clopidogrel Bisulfate 75 MG TAB PO SCH (20:59)
[2021-02-16] MEDS: DULoxetine 30 MG CAP PO SCH (09:08)
[2021-02-16] MEDS: Metoprolol Tartrate 25 MG TAB PO SCH ×2 (09:08→21:02)
[2021-02-16] MEDS: Famotidine 20 MG TAB PO SCH ×2 (09:09→21:01)
[2021-02-16] MEDS: Aspirin 81 mg Enteric Coated Tablet PO SCH (09:09)
[2021-02-16] MEDS: Nicotine 21 MG PATCH TD SCH (09:09)
[2021-02-16] MEDS: Clopidogrel Bisulfate 75 MG TAB PO SCH (21:01)
[2021-02-16] MEDS: Acetaminophen 325 MG TAB PO PRN (21:02)
[2021-02-16 23:15] LABS: SARS-CoV-2 PCR by NAA Not Detected (NotDetected)
[2021-02-17] MEDS: Famotidine 20 MG TAB PO SCH ×2 (08:40→20:24)
[2021-02-17] MEDS: DULoxetine 30 MG CAP PO SCH (08:41)
[2021-02-17] MEDS: Nicotine 21 MG PATCH TD SCH (08:42)
[2021-02-17] MEDS: Aspirin 81 mg Enteric Coated Tablet PO SCH (08:42)
[2021-02-17] MEDS: Metoprolol Tartrate 25 MG TAB PO SCH ×2 (08:42→21:27)
[2021-02-17] MEDS: Clopidogrel Bisulfate 75 MG TAB PO SCH (20:24)
[2021-02-17] MEDS: Acetaminophen 325 MG TAB PO PRN (20:25)
[2021-02-18 06:13] VITALS: BMI 29.0
[2021-02-18] MEDS: DULoxetine 30 MG CAP PO SCH (08:25)
[2021-02-18] MEDS: Famotidine 20 MG TAB PO SCH ×2 (08:25→21:13)
[2021-02-18] MEDS: Bisacodyl 5 MG TAB PO PRN (08:26)
[2021-02-18] MEDS: Metoprolol Tartrate 25 MG TAB PO SCH ×2 (08:26→21:12)
[2021-02-18] MEDS: Aspirin 81 mg Enteric Coated Tablet PO SCH (08:26)
[2021-02-18] MEDS: Nicotine 21 MG PATCH TD SCH (08:26)
[2021-02-18] MEDS: Clopidogrel Bisulfate 75 MG TAB PO SCH (21:09)
[2021-02-18] MEDS: Acetaminophen 325 MG TAB PO PRN (21:13)
[2021-02-19] MEDS: Famotidine 20 MG TAB PO SCH ×2 (08:50→20:00)
[2021-02-19] MEDS: Metoprolol Tartrate 25 MG TAB PO SCH ×2 (08:50→20:02)
[2021-02-19] MEDS: Aspirin 81 mg Enteric Coated Tablet PO SCH (08:50)
[2021-02-19] MEDS: Nicotine 21 MG PATCH TD SCH (08:50)
[2021-02-19] MEDS: DULoxetine 30 MG CAP PO SCH (08:50)
[2021-02-19] MEDS: traMADol HCl 50 MG TAB PO PRN (09:05)
[2021-02-19] MEDS: Acetaminophen 325 MG TAB PO PRN (20:00)
[2021-02-19] MEDS: Clopidogrel Bisulfate 75 MG TAB PO SCH (20:02)
[2021-02-20] MEDS: Aspirin 81 mg Enteric Coated Tablet PO SCH (08:16)
[2021-02-20] MEDS: Nicotine 21 MG PATCH TD SCH (08:16)
[2021-02-20] MEDS: Famotidine 20 MG TAB PO SCH ×2 (08:16→20:24)
[2021-02-20] MEDS: Metoprolol Tartrate 25 MG TAB PO SCH ×2 (08:16→20:24)
[2021-02-20] MEDS: DULoxetine 30 MG CAP PO SCH (08:16)
[2021-02-20] MEDS: traMADol HCl 50 MG TAB PO PRN (08:22)
[2021-02-20] MEDS: Bisacodyl 5 MG TAB PO PRN (10:20)
[2021-02-20] MEDS: Senokot S 8.6-50 MG TAB PO PRN (10:20)
[2021-02-20] MEDS: Acetaminophen 325 MG TAB PO PRN (20:24)
[2021-02-20] MEDS: Clopidogrel Bisulfate 75 MG TAB PO SCH (20:24)
[2021-02-21] MEDS: Aspirin 81 mg Enteric Coated Tablet PO SCH (09:26)
[2021-02-21] MEDS: Nicotine 21 MG PATCH TD SCH (09:26)
[2021-02-21] MEDS: DULoxetine 30 MG CAP PO SCH (09:26)
[2021-02-21] MEDS: Famotidine 20 MG TAB PO SCH ×2 (09:26→20:51)
[2021-02-21] MEDS: Metoprolol Tartrate 25 MG TAB PO SCH ×2 (09:26→20:54)
[2021-02-21] MEDS: traMADol HCl 50 MG TAB PO PRN (09:37)
[2021-02-21] MEDS: Acetaminophen 325 MG TAB PO PRN (09:37)
[2021-02-21] MEDS: Bisacodyl 5 MG TAB PO PRN (09:38)
[2021-02-21] MEDS: Clopidogrel Bisulfate 75 MG TAB PO SCH (20:52)
[2021-02-22] MEDS: DULoxetine 30 MG CAP PO SCH (08:08)
[2021-02-22] MEDS: Aspirin 81 mg Enteric Coated Tablet PO SCH (08:10)
[2021-02-22] MEDS: Metoprolol Tartrate 25 MG TAB PO SCH ×2 (08:10→21:13)
[2021-02-22] MEDS: Famotidine 20 MG TAB PO SCH ×2 (08:10→21:12)
[2021-02-22] MEDS: Nicotine 21 MG PATCH TD SCH (08:11)
[2021-02-22] MEDS ORDERED: Sodium Chloride 0.9% 1,000 ML IV SCH (14:00)
[2021-02-22] MEDS: Clopidogrel Bisulfate 75 MG TAB PO SCH (21:13)
[2021-02-23] MEDS: Nicotine 21 MG PATCH TD SCH (08:01)
[2021-02-23] MEDS: DULoxetine 30 MG CAP PO SCH (08:02)
[2021-02-23] MEDS: Famotidine 20 MG TAB PO SCH ×2 (08:03→21:02)
[2021-02-23] MEDS: Aspirin 81 mg Enteric Coated Tablet PO SCH (08:03)
[2021-02-23] MEDS: Metoprolol Tartrate 25 MG TAB PO SCH ×2 (08:03→21:02)
[2021-02-23] MEDS: Acetaminophen 325 MG TAB PO PRN (11:10)
[2021-02-23] MEDS: traMADol HCl 50 MG TAB PO PRN ×2 (11:10→21:02)
[2021-02-23 16:42] LABS: SARS-CoV-2 PCR by NAA Not Detected (NotDetected)
[2021-02-23] MEDS: Clopidogrel Bisulfate 75 MG TAB PO SCH (21:02)
[2021-02-24] MEDS: Nicotine 21 MG PATCH TD SCH (08:00)
[2021-02-24] MEDS: Acetaminophen 325 MG TAB PO PRN (08:00)
[2021-02-24] MEDS: Famotidine 20 MG TAB PO SCH (08:02)
[2021-02-24] MEDS: Aspirin 81 mg Enteric Coated Tablet PO SCH (08:02)
[2021-02-24] MEDS: Metoprolol Tartrate 25 MG TAB PO SCH (08:02)
[2021-02-24] MEDS: DULoxetine 30 MG CAP PO SCH (08:02)
[2021-02-24] MEDS: traMADol HCl 50 MG TAB PO PRN (08:05)
[2021-02-24 16:53] VITALS: BP 133/77; TEMP 98
== END 2021-02-24 16:45 | disposition home or self-care (01) | DRG 556 ==
LOC: NAV ACUTE 13:25
PROVIDERS: ADMIT Family Medicine; ATTEND Family Medicine
DX: M62.81 Muscle weakness (generalized) (principal); Z20.822 Contact with and (suspected) exposure to COVID-19; I25.10 Atherosclerotic heart disease of native coronary artery without angina pectoris; F32.A Depression, unspecified; I73.9 Peripheral vascular disease, unspecified; G89.4 Chronic pain syndrome; I10 Essential (primary) hypertension; E78.5 Hyperlipidemia, unspecified; Z74.09 Other reduced mobility; Z79.82 Long term (current) use of aspirin; Z79.899 Other long term (current) drug therapy
CPT/HCPCS: 36415; 80048; 85025; J7050; U0003; U0005

== ENCOUNTER 2021-03-23 14:05 | Emergency (ER) | payer MEDICARE ==
[2021-03-23 14:27] LABS: #Basophils 0.1 thou/uL (0.0-0.2); #Eosinphils 0.2 thou/uL (0.0-0.7); #Lymphocytes 2.1 thou/uL (1.20-3.40); #Monocytes 0.5 thou/uL (0.11-0.59); #Neutrophils 3.2 thou/uL (1.40-6.50); %Basophils 1.5 % (0.0-1.0); %Eosinophils 3.7 % (0.0-10.0); %Lymphocytes 34.2 % (21.0-51.0); %Neutrophils 52.6 % (42.0-75.0); Hemoglobin 12.6 g/dL (12.0-16.0); Mean Corpuscular HGB CONC 30.5 g/dL (32.0-36.0); Mean Corpuscular Volume 98.2 fL (78.0-98.0); Mean Platelet Volume 6.9 fL (7.4-10.4); Platelet Count 283 thou/uL (130-400); RBC Distribution Width 15.5 % (11.5-14.5); Red Blood Cell (RBC) Count 4.21 mill/uL (4.20-5.40)
[2021-03-23 15:06] LABS: Bilirubin Negative (Negative); Blood, Urine Negative (Negative); Glucose, Urine (Dipstick) Negative (Negative); Ketone, Urine Negative (Negative); Leukocyte Moderate (Negative); Nitrite Positive (Negative); Protein, Urine (Dipstick) Negative (Neg-Trace); Urobilinogen 0.2 mg/dL (Less than 2); pH, Urine 5.5 (5.0-9.0)
[2021-03-23] MEDS ORDERED: Sodium Chloride 0.9% 500 ML ONE (15:07)
[2021-03-23 15:09] LABS: ALT (SGPT) 21 U/L (8-55); AST (SGOT) 21 U/L (5-34); Albumin 3.6 g/dL (3.4-4.8); Alkaline Phosphatase 93 U/L (40-110); Anion Gap 14 mmol/L (10-20); BUN (Urea Nitrogen) 20 mg/dL (9.8-20.1); Bilirubin, Total 0.3 mg/dL (0.2-1.2); Calc. Creatinine Clearance 0 mL/min (70-130); Calcium 9.5 mg/dL (7.8-10.44); Carbon Dioxide 26 mmol/L (23-31); Chloride 99 mmol/L (98-107); Globulin 3.4 g/dL (2.4-3.5); Glucose 103 mg/dL (83-110); Potassium 3.8 mmol/L (3.5-5.1); Sodium 135 mmol/L (136-145)
[2021-03-23 15:15] LABS: Clarity Hazy (Clear)
[2021-03-23 15:16] LABS: Bacteria/HPF 4+ HPF (None Seen); Squamous Epithelial 0-3 HPF (0-3)
[2021-03-23] MEDS ORDERED: Aspirin Chewable 81 MG TAB ONE (15:34)
[2021-03-23 17:49] LABS: Troponin I Less than 0.010 ng/mL (< 0.028)
[2021-03-23] MEDS ORDERED: Cephalexin 250 MG CAP ONE (18:09)
== END 2021-03-23 18:15 | disposition home or self-care (01) ==
LOC: NAV ERS 14:05
DX: R07.89 Other chest pain (principal); E86.0 Dehydration; N39.0 Urinary tract infection, site not specified; F02.81 Dementia in other diseases classified elsewhere, unspecified severity, with behavioral disturbance; I11.0 Hypertensive heart disease with heart failure; I50.9 Heart failure, unspecified; E78.00 Pure hypercholesterolemia, unspecified; I25.2 Old myocardial infarction; F17.210 Nicotine dependence, cigarettes, uncomplicated; Z79.82 Long term (current) use of aspirin; Z79.02 Long term (current) use of antithrombotics/antiplatelets; Z79.899 Other long term (current) drug therapy
CPT/HCPCS: 71045; 80053; 81003; 81015; 83880; 84484; 85025; 85379; 87077; 87086; 87186; 93005; 94760; J7030

== ENCOUNTER 2021-05-03 19:07 | Emergency (ER) | payer MEDICARE ==
[2021-05-03 19:46] LABS: #Basophils 0.1 thou/uL (0.0-0.2); #Eosinphils 0.2 thou/uL (0.0-0.7); #Lymphocytes 1.6 thou/uL (1.20-3.40); #Monocytes 0.5 thou/uL (0.11-0.59); #Neutrophils 2.8 thou/uL (1.40-6.50); %Basophils 1.2 % (0.0-1.0); %Eosinophils 4.5 % (0.0-10.0); %Lymphocytes 30.7 % (21.0-51.0); %Monocytes 9.7 % (0.0-10.0); Mean Corpuscular HGB CONC 31.2 g/dL (32.0-36.0); Mean Corpuscular Hemoglobin 29.6 pg (27.0-31.0); Mean Corpuscular Volume 94.8 fL (78.0-98.0); Mean Platelet Volume 7.4 fL (7.4-10.4); Platelet Count 252 thou/uL (130-400); RBC Distribution Width 14.7 % (11.5-14.5); Red Blood Cell (RBC) Count 4.06 mill/uL (4.20-5.40); White Blood Cell (WBC) Count 5.2 thou/uL (4.8-10.8)
[2021-05-03 20:04] LABS: ALT (SGPT) 23 U/L (8-55); AST (SGOT) 34 U/L (5-34); Albumin 3.5 g/dL (3.4-4.8); Alkaline Phosphatase 148 U/L (40-110); Anion Gap 14 mmol/L (10-20); BUN (Urea Nitrogen) 12 mg/dL (9.8-20.1); Bilirubin, Total 0.3 mg/dL (0.2-1.2); CK (CPK) 44 U/L (29-168); Calc. Creatinine Clearance 0 mL/min (70-130); Calcium 8.5 mg/dL (7.8-10.44); Carbon Dioxide 25 mmol/L (23-31); Chloride 102 mmol/L (98-107); Glucose 97 mg/dL (83-110); Lipase 37 U/L (8-78); Protein, Total 6.5 g/dL (5.8-8.1); Sodium 138 mmol/L (136-145)
[2021-05-03 20:04] LABS: Bilirubin Negative (Negative); Blood, Urine Trace (Negative); Glucose, Urine (Dipstick) Negative (Negative); Ketone, Urine Negative (Negative); Leukocyte Large (Negative); Nitrite Negative (Negative); Protein, Urine (Dipstick) Negative (Neg-Trace)
[2021-05-03 20:06] LABS: Potassium 2.8 mmol/L (3.5-5.1)
[2021-05-03] MEDS ORDERED: Potassium Chloride 20 MEQ/100 ML PREMIX BAG ONE (20:15)
[2021-05-03 20:24] LABS: Clarity Hazy (Clear)
[2021-05-03 20:25] LABS: Bacteria/HPF 4+ HPF (None Seen); Squamous Epithelial 0-3 HPF (0-3); WBC/HPF Greater Than 50 HPF (0-3)
[2021-05-03] MEDS ORDERED: Sodium Chloride 0.9% 1,000 ML ONE (20:38)
[2021-05-03] MEDS ORDERED: Sodium Chloride 0.9% 100 ML ONE (20:38)
[2021-05-03] MEDS ORDERED: cefTRIAXone\\ROCEPHIN 1 GM VIAL ONE (20:38)
[2021-05-03 21:29] LABS: SARS-CoV-2 NAA Rapid Test DETECTED (NotDetected)
== END 2021-05-03 23:35 | disposition short-term general hospital (02) ==
LOC: NAV ERS 19:07
DX: U07.1 COVID-19 (principal); N39.0 Urinary tract infection, site not specified; R41.82 Altered mental status, unspecified; E87.6 Hypokalemia; F17.210 Nicotine dependence, cigarettes, uncomplicated; I11.0 Hypertensive heart disease with heart failure; I50.9 Heart failure, unspecified; E78.00 Pure hypercholesterolemia, unspecified; I25.2 Old myocardial infarction; Z95.5 Presence of coronary angioplasty implant and graft; Z79.82 Long term (current) use of aspirin; Z79.899 Other long term (current) drug therapy
CPT/HCPCS: 51701; 70450; 71045; 82550; 83605; 83690; 84484; 87040; 87077; 87086; 93005; 96365; 96366; 96368; 99285; U0002; 80053; 81003; 81015; 84443; 85025; 87186; J0696; J3480; J3490; J7050